=== PATIENT | female | born 1935 | race Caucasian/White ===

== ENCOUNTER 2017-01-11 12:20 | Inpatient (IN) | payer BC, OTHER ==
[2017-01-11] MEDS ORDERED: SODIUM CHLORIDE 1,000 ML IV STA ×5 (12:30→22:52)
[2017-01-11] MEDS ORDERED: ONDANSETRON 4 MG/2 ML VIAL IVPB ONE (12:30)
--- NOTE | 2017-01-11 12:36 | PDOC ---
History of Present Illness - General History Source: Care Provider, Family Exam Limitations: Dementia - History of Present Illness Initial Comments: CHIEF COMPLAINT: 81 y/o afebrile female with PMH HTN, HLD, dementia BIB family and care worker for abdominal pain and vomiting. HISTORY OF PRESENT ILLNESS: The patient's family states that she woke up this morning complaining of abdominal pain and has vomited a few times. The care worker states her last BM was yesterday but she is often constipated. They also have noticed a decrease in urination. They deny fever, cough, hemoptysis, CP, SOB, hematuria, diarrhea, hematemesis, hematochezia, melena. Vital signs on arrival are notable for pulse of 123. REVIEW OF SYSTEMS: (provided by family and care worker) GENERAL/CONSTITUTIONAL: No fever CARDIOVASCULAR: No chest pain or shortness of breath. RESPIRATORY: No cough, wheezing, or hemoptysis. GASTROINTESTINAL: +abdominal pain, vomiting. ?constipation. No diarrhea, hematemesis, hematochezia, melena. GENITOURINARY: +decrease in urination. NEUROLOGIC: No change in mental status. PHYSICAL EXAM: GENERAL: The patient is awake, alert, alert to person, in NAD or obvious discomfort. HEAD: Normal with no signs of trauma. ENT: Pupils equal, round and reactive to light, extraocular movements intact, sclera anicteric, conjunctiva clear. Mucous membranes mildly dry. LUNGS: Clear to auscultation bilaterally. Normal excursion. No respiratory distress or use of accessory muscles. CV: rapid rate/regular rhythm, S1/S2, no MRG. Cap refill < 2 sec. ABDOMEN: Soft, non-distended, TTP of left lower quadrant with passive guarding. No rebound or rigidity. hyperactive BS x 4 quadrants. EXTREMITIES: Normal range of motion, no edema. NEUROLOGICAL: Normal speech, normal gait. CN II-XII grossly intact. PSYCH: Normal mood, normal affect. SKIN: Warm, dry, normal turgor, no rashes or lesions noted. <Alondra Angulo - Last Filed: 01/11/17 17:30> <Joleen Greenberg - Last Filed: 01/13/17 14:19> - General Chief Complaint: Pain Stated Complaint: ABD PAIN Time Seen by Provider: 01/11/17 12:28 Past History <Alondra Angulo - Last Filed: 01/11/17 17:30> <Joleen Greenberg - Last Filed: 01/13/17 14:19> - Past Medical History Allergies/Adverse Reactions: Allergies Allergy/AdvReac Type Severity Reaction Status Date / Time No Known Allergies Allergy Verified 01/11/17 12:35 *Physical Exam - Vital Signs Last Vital Signs Temp Pulse Resp BP Pulse Ox 98.1 F 83 28 H 136/88 100 01/13/17 10:00 01/13/17 14:00 01/13/17 14:00 01/13/17 14:00 01/13/17 11:06 <Joleen Greenberg - Last Filed: 01/13/17 14:19> Heart Score/ECG Review - ECG Intrepretation Comment:: Twelve-lead EKG was performed and reviewed by Dr. Greenberg. There is sinus tachycardia with rate of 123bpm. The axis is normal. The intervals are normal. There are no ST or T wave abnormalities. Impression: Abnormal twelve-lead EKG <Alondra Angulo - Last Filed: 01/11/17 17:30> ED Treatment Course - LABORATORY CBC & Chemistry Diagram: 01/11/17 13:10 01/11/17 13:10 <Alondra Angulo - Last Filed: 01/11/17 17:30> - LABORATORY CBC & Chemistry Diagram: 01/13/17 05:20 01/13/17 05:20 - ADDITIONAL ORDERS Additional order review: 01/11/17 13:10 Blood Culture - Preliminary Blood - Peripheral Venous NO GROWTH OBTAINED AFTER 48 HOURS, INCUBATION TO CONTINUE FOR 3 DAYS. 01/11/17 13:10 Blood Culture - Preliminary Blood - Peripheral Venous NO GROWTH OBTAINED AFTER 48 HOURS, INCUBATION TO CONTINUE FOR 3 DAYS. 01/11/17 13:36 Urine Culture - Final Urine - Urine - Catheterized NO GROWTH OBTAINED 01/11/17 13:10 RBC 4.79 MCV 91.3 MCHC 32.7 RDW 13.6 MPV 7.2 L Neutrophils % 90.0 H Lymphocytes % 4.6 L Monocytes % 5.1 Eosinophils % 0.0 Basophils % 0.3 - Medications Given in the ED: ED Medications Discontinued Medications Generic Name Dose Route Start Last Admin Trade Name Freq PRN Reason Stop Dose Admin Acetaminophen 1,000 mg 01/11/17 16:09 01/11/17 17:20 Ofirmev Injection - IVPB 01/11/17 16:10 1,000 mg ONCE ONE Administration Acetaminophen 1,000 mg 01/12/17 09:36 01/12/17 23:40 Ofirmev Injection - IVPB 01/13/17 03:37 1,000 mg Q6H PRN Administration FEVER OR PAIN Calcium Gluconate 1,000 mg 01/13/17 08:01 01/13/17 08:35 Calcium Gluconate 10% - IVPB 01/13/17 08:02 1,000 mg ONCE ONE Administration Enoxaparin Sodium 60 mg 01/11/17 22:00 01/11/17 21:36 Lovenox - SQ 60 mg BID MARI Administration Sodium Chloride 1,000 mls @ 1,000 mls/hr 01/11/17 12:30 01/11/17 13:00 Normal Saline - IV 01/11/17 13:29 1,000 mls/hr ASDIR STA Administration Sodium Chloride 1,000 mls @ 1,000 mls/hr 01/11/17 15:11 01/11/17 15:14 Normal Saline - IV 01/11/17 16:10 1,000 mls/hr ASDIR STA Administration Levofloxacin 150 mls @ 100 mls/hr 01/11/17 16:09 01/11/17 16:21 Levaquin 750 Mg Premixed Ivpb - IVPB 01/11/17 17:38 100 mls/hr ONCE ONE Administration Azithromycin 500 mg/ Dextrose 250 mls @ 250 mls/hr 01/11/17 17:30 01/11/17 18: 09 IVPB 250 mls/hr DAILY MARI Administration Ceftriaxone Sodium 1 gm/ 50 mls @ 100 mls/hr 01/11/17 17:30 01/11/17 17:59 Dextrose IVPB 100 mls/hr DAILY MARI Administration Sodium Chloride 1,000 mls @ 75 mls/hr 01/11/17 17:30 01/11/17 18:09 Normal Saline - IV 75 mls/hr ASDIR MARI Administration Sodium Chloride 1,000 mls @ 1,000 mls/hr 01/11/17 19:43 01/11/17 20:28 Normal Saline - IV 01/11/17 20:42 1,000 mls/hr ASDIR STA Administration Sodium Chloride 1,000 mls @ 1,000 mls/hr 01/11/17 19:44 01/11/17 20:28 Normal Saline - IV 01/11/17 20:43 1,000 mls/hr ASDIR STA Administration Sodium Chloride 1,000 mls @ 1,000 mls/hr 01/11/17 22:52 01/11/17 23:13 Normal Saline - IV 01/11/17 23:51 1,000 mls/hr ASDIR STA Administration Vancomycin HCl 250 mls @ 250 mls/hr 01/11/17 22:56 01/12/17 00:22 Vancomycin (Pre-Docked) IVPB 01/11/17 23:55 Not Given ONCE ONE Protocol Piperacillin Sod/Tazobactam Sod 50 mls @ 100 mls/hr 01/11/17 22:57 01/12/17 00: 22 Zosyn 3.375gm Ivpb (Pre-Docked) IVPB 01/11/17 23:26 Not Given ONCE ONE Protocol Vancomycin HCl 1,000 mg/ 250 mls @ 250 mls/hr 01/12/17 10:32 01/12/17 11:55 Dextrose IVPB 01/12/17 11:31 Not Given ONCE ONE Protocol Potassium Phosphate 21 mm/ 257 mls @ 51.4 mls/hr 01/12/17 13:00 01/12/17 14:17 Sodium Chloride IVPB 01/12/17 17:59 51.4 mls/hr ONCE ONE Administration Magnesium Sulfate 1 gm 01/12/17 12:15 01/12/17 12:51 Magnesium Sulfate IVPB 01/12/17 12:16 1 gm ONCE ONE Administration Ondansetron HCl 4 mg 01/11/17 12:30 01/11/17 13:00 Zofran Injection IVPB 01/11/17 12:31 4 mg ONCE ONE Administration Pantoprazole Sodium 40 mg 01/12/17 10:00 01/12/17 09:38 Protonix 40mg Ivpb (Pre-Docked) IVPB 40 mg DAILY MARI Administration Pneumococcal 13-Valent Conj Vacc 0.5 ml 01/12/17 10:00 01/12/17 17:51 Prevnar 13 Syringe - IM 01/12/17 10:01 0.5 ml .ONCE ONE Administration <Joleen Greenbegr - Last Filed: 01/13/17 14:19> Medical Decision Making - Medical Decision Making A/P: 81 y/o female with abdominal pain and vomiting. Plan is as follows: 1. Septic work up 2. abdominal xray Lactic acid 3.1; ordered 2nd Liter of IV fluids Elevated WBC count with left shift. Abd flat/upright IMPRESSION: No evidence of bowel obstruction or acute pathology. CXR IMPRESSION: Developing right basilar consolidation Patient's temp is now 99.8 Ordered [facility] hospitalist for admission Informed the family of the plan. Spoke with Dr. Carbajal and she accepts admission to med/surg. <Alondra Angulo - Last Filed: 01/11/17 17:30> - Medical Decision Making 01/13/17 14:18 Pt seen and examined by me. Agree with above history and physical, assessment and plan. Patient presents to the ED with nausea and vomiting. Found to have pneumonia. Will treat with antibiotics and admit. <Joleen Greenberg - Last Filed: 01/13/17 14:19> *DC/Admit/Observation/Transfer - Discharge Dispostion Admit: Yes <Alondra Angulo - Last Filed: 01/11/17 17:30> <Joleen Greenberg - Last Filed: 01/13/17 14:19> Diagnosis at time of Disposition: Lactic acid acidosis Pneumonia Qualifiers: Pneumonia type: due to unspecified organism Laterality: right Lung location: lower lobe of lung Qualified Code(s): J18.1 - Lobar pneumonia, unspecified organism Sepsis Qualifiers: Sepsis type: sepsis due to unspecified organism Qualified Code(s): A41.9 - Sepsis, unspecified organism - Discharge Dispostion Condition at time of disposition: Stable - Referrals
--- NOTE | 2017-01-11 12:37 | EKG ---
Test Reason : Blood Pressure : / mmHG Vent. Rate : 121 BPM Atrial Rate : 121 BPM P-R Int : 144 ms QRS Dur : 064 ms QT Int : 326 ms P-R-T Axes : 075 -10 057 degrees QTc Int : 462 ms SINUS TACHYCARDIA POSSIBLE INFERIOR INFARCT , AGE UNDETERMINED ABNORMAL ECG NO PREVIOUS ECGS AVAILABLE Confirmed by JASWINDER ALVARADO MD ([id number]) on 01/11/2017 12:36:53 PM Referred By: Confirmed By:JASWINDER ALVARADO MD
[2017-01-11 13:29] LABS: BASOPHIL 0.3 % (0-2.0); MCH 29.9 pg (25.7-33.7); MCHC 32.7 g/dl (32.0-36.0); MEAN CELL VOLUME 91.3 fl (80-96); MEAN PLT VOLUME 7.2 fl (7.5-11.1); PLATELET COUNT 365 K/MM3 (134-434); RDW 13.6 % (11.6-15.6); WHITE BLOOD COUNT 17.7 K/mm3 (4.0-10.0)
[2017-01-11 13:53] LABS: ALBUMIN 3.1 g/dl (3.4-5.0); ANION GAP 10 (8-16); BILIRUBIN,TOTAL 0.6 mg/dL (0.2-1.0); CALCIUM 9.2 mg/dL (8.5-10.1); CO2 28 mmol/L (21-32); CREATININE 0.7 mg/dL (0.55-1.02); GLUCOSE,RANDOM 101 mg/dL (74-106); SGPT/ALT 88 U/L (12-78)
[2017-01-11 13:55] LABS: ALK PHOS 172 U/L (45-117); TROPONIN I 0.38 ng/ml (0.00-0.05)
[2017-01-11 13:56] LABS: SGOT/AST 89 U/L (15-37)
[2017-01-11 14:09] LABS: INR 1.35 (0.82-1.09); PROTHROMBIN TIME (PATIENT) 14.9 SEC (9.98-11.88)
[2017-01-11 14:12] LABS: ACTIVATED PTT 38.9 SECONDS (26.9-34.4)
[2017-01-11 15:14] LABS: URINE APPEARANCE CLEAR; URINE BILIRUBIN NEGATIVE (NEGATIVE); URINE BLOOD NEGATIVE (NEGATIVE); URINE COLOR YELLOW; URINE GLUCOSE (UA) NEGATIVE (NEGATIVE); URINE KETONE NEGATIVE (NEGATIVE); URINE NITRITE NEGATIVE (NEGATIVE); URINE PROTEIN NEGATIVE (NEGATIVE); URINE UROBILINOGEN NEGATIVE E.U./dl (0.2-1.0)
[2017-01-11 15:18] LABS: URINE LEUK ESTERASE 1+ (NEGATIVE)
[2017-01-11 15:33] LABS: URINE MUCUS RARE; URINE RBC 3 /hpf (0-3); URINE WBC 7 /hpf (3-5)
[2017-01-11] MEDS ORDERED: LEVOFLOXACIN 750 MG IVPB 150 ML IVPB ONE ×2 (16:09→16:18)
[2017-01-11] MEDS ORDERED: ACETAMINOPHEN 1000 MG/100 ML VIAL (NON FORMULARY) IVPB ONE (16:09)
[2017-01-11] MEDS ORDERED: ACETAMINOPHEN INJECTION 100 ML IVPB ONE (16:17)
[2017-01-11] MEDS ORDERED: ONDANSETRON 4 MG/2 ML VIAL IVPB PRN (17:29)
[2017-01-11] MEDS ORDERED: AZITHROMYCIN IVPB 500 MG in DEXTROSE 5%-WATER - 250 ML IVPB SCH (17:30)
[2017-01-11] MEDS ORDERED: CEFTRIAXONE 1 GM in DEXTROSE 5%-WATER - 50 ML IVPB SCH (17:30)
[2017-01-11] MEDS ORDERED: SODIUM CHLORIDE 1,000 ML IV SCH (17:30)
--- NOTE | 2017-01-11 17:48 | PN ---
Teaching Attending Note Name of Resident: Jurgen James ATTENDING PHYSICIAN STATEMENT I saw and evaluated the patient. I reviewed the resident's note and discussed the case with the resident. I agree with the resident's findings and plan as documented. SUBJECTIVE: 81 year old female with advanced dementia brought by family due to increasing lethargy over the past 2 weeks and episode of nausea and vomiting this am . EVIEW OF SYSTEMS: (provided by family and care worker) GENERAL/CONSTITUTIONAL: No fever CARDIOVASCULAR: No chest pain or shortness of breath. RESPIRATORY: No cough, wheezing, or hemoptysis. GASTROINTESTINAL: +abdominal pain, vomiting.No diarrhea, hematemesis, hematochezia, melena. GENITOURINARY: +decrease in urination. possible retention NEUROLOGIC: increased lethargy past 2 weeks PMH. Dementia CVA HTN SX cholecystectomy appendectomy ALL none Active Medications Azithromycin 500 mg/ Dextrose 250 mls @ 250 mls/hr IVPB DAILY MARI Ceftriaxone Sodium 1 gm/ (Dextrose) 50 mls @ 100 mls/hr IVPB DAILY MARI Sodium Chloride (Normal Saline -) 1,000 mls @ 75 mls/hr IV ASDIR MARI Ondansetron HCl (Zofran Injection) 4 mg IVPB Q6H PRN PRN Reason: NAUSEA SOcial no history of toxic habits lives with family OBJECTIVE: Vital Signs Temperature 99.7 F H 01/11/17 15:00 Pulse Rate 115 H 01/11/17 16:47 Respiratory Rate 25 H 01/11/17 16:47 Blood Pressure 113/75 01/11/17 16:47 O2 Sat by Pulse Oximetry (%) 99 01/11/17 16:47 GENERAL: The patient is awake, alert, alert to person, in NAD HEAD: Normal with no signs of trauma. ENT: Pupils equal, round and reactive to light,sclera anicteric, conjunctiva clear. Mucous membranes mildly dry. LUNGS: Clear to auscultation bilaterally. Normal excursion. No respiratory distress or use of accessory muscles. CV: rapid rate/regular rhythm, S1/S2, no MRG. Cap refill < 2 sec. ABDOMEN: Soft, non-distended,mild tenderness diffuse . No rebound or rigidity. hyperactive BS x 4 quadrants. EXTREMITIES: Normal range of motion, no edema.B/l popliteal cysts NEUROLOGICAL: Lethargic PSYCH:Lethargic SKIN: Warm, dry, normal turgor, no rashes or lesions noted. CBC, BMP 01/11/17 13:10 01/11/17 13:10 Urine Test Results Urine Color Yellow 01/11/17 13:36 Urine Appearance Clear 01/11/17 13:36 Urine pH 6.0 (5.0-8.0) 01/11/17 13:36 Urine Protein Negative (NEGATIVE) 01/11/17 13:36 Urine Glucose (UA) Negative (NEGATIVE) 01/11/17 13:36 Urine Ketones Negative (NEGATIVE) 01/11/17 13:36 Urine Blood Negative (NEGATIVE) 01/11/17 13:36 Urine Nitrite Negative (NEGATIVE) 01/11/17 13:36 Urine Bilirubin Negative (NEGATIVE) 01/11/17 13:36 Ur Leukocyte Esterase 1+ (NEGATIVE) H 01/11/17 13:36 Urine RBC 3 /hpf (0-3) 01/11/17 13:36 Urine WBC 7 /hpf (3-5) 01/11/17 13:36 Ur Epithelial Cells Rare /hpf (FEW) 01/11/17 13:36 Urine Mucus Rare 01/11/17 13:36 Chest XR reveals Right Basilar consolidation A/P 1. Severe sepsis secondary to community acquired pneumonia. Considering advanced dementia, lethargy and evidence of Right sided infiltrate can not rule out aspiration . * IVF * Rocephine IV and Zithromax * trend lactate * blood cultures * O2 * nebs * speech and swallow eval 2. Elevated Troponin * trend, if raising and EKG changes will call cardiology 3.SUspected urinary retention * will place cote catheter 4. B/L LE swelling - will obtain dopplers
[2017-01-11] MEDS ORDERED: CEFTRIAXONE 50 ML ONE (17:52)
[2017-01-11] MEDS ORDERED: ACETAMINOPHEN 1000 MG/100 ML VIAL (NON FORMULARY) IVPB PRN (19:01)
--- NOTE | 2017-01-11 19:03 | HP ---
CHIEF COMPLAINT: Altered mental status and lethargic PCP: Alfredo Foster MD HISTORY OF PRESENT ILLNESS: 81 yo F h/o HTN, HLD, dementia brought in by family members due to abdominal pain, altered mental status and yellow sputum. Per family, patient has not been herself for 2 weeks which has been off her baseline mental status. Today, patient woke up in the AM and complained of diffuse abd pain and vomited a couple of times. Care worker also found she had yellow sputum when cleaning her mouth. Patient never received pneumoia vaccine. Denies fever, chills, cough, chest pain, shortness of breath, hematemesis, hematochezia, melena. ER course was notable for: (1) Elevated temp, tachycardic and tachypenic (2) Received 2 L IVF, Normotensive (3) Elevated lactic acid and 1st trop Recent Travel: Denies PAST MEDICAL HISTORY: As above PAST SURGICAL HISTORY: None Social History: Smoking: Denies Alcohol: Denies Drugs: Denies Family History: Non-contributory Allergies No Known Allergies Allergy (Verified 01/11/17 12:35) HOME MEDICATIONS: REVIEW OF SYSTEMS CONSTITUTIONAL: generalized weakness, malaise, loss of appetite Absent: fever, chills, diaphoresis, , weight change HEENT: Absent: rhinorrhea, nasal congestion, throat pain, throat swelling, difficulty swallowing, mouth swelling, ear pain, eye pain, visual changes CARDIOVASCULAR: Absent: chest pain, syncope, palpitations, irregular heart rate, lightheadedness , peripheral edema RESPIRATORY: Absent: cough, shortness of breath, dyspnea with exertion, orthopnea, wheezing, stridor, hemoptysis GASTROINTESTINAL: abdominal pain Absent: abdominal distension, nausea, vomiting, diarrhea, constipation, melena, hematochezia GENITOURINARY: urinary retention Absent: dysuria, frequency, urgency, hesitancy, hematuria, flank pain, genital pain MUSCULOSKELETAL: Absent: myalgia, arthralgia, joint swelling, back pain, neck pain SKIN: Absent: rash, itching, pallor HEMATOLOGIC/IMMUNOLOGIC: Absent: easy bleeding, easy bruising, lymphadenopathy, frequent infections ENDOCRINE: Absent: unexplained weight gain, unexplained weight loss, heat intolerance, cold intolerance NEUROLOGIC: Absent: headache, focal weakness or paresthesias, dizziness, unsteady gait, seizure, mental status changes, bladder or bowel incontinence PSYCHIATRIC: Absent: anxiety, depression, suicidal or homicidal ideation, hallucinations. PHYSICAL EXAMINATION Last Vital Signs Temp Pulse Resp BP Pulse Ox 99.7 F H 115 H 25 H 113/75 99 01/11/17 15:00 01/11/17 16:47 01/11/17 16:47 01/11/17 16:47 01/11/17 16:47 GENERAL: AAO x 3, in no acute distress. HEAD: Normal with no signs of trauma. EYES: PERRLA, sclera anicteric, conjunctiva clear. No lid lag. EARS, NOSE, THROAT: oropharynx clear without exudates. Moist mucous membranes. NECK: Normal range of motion, supple without lymphadenopathy, JVD, or masses. LUNGS: CTAB HEART: tachycardic, normal S1 and S2 without murmur, rub or gallop. ABDOMEN: Soft, diffusely tender, not distended, normoactive bowel sounds, no guarding, no rebound, no masses. EXTREMITIES: Cold extremities. Weak pulses bilaterally. No peripheral edema. b/ l cysts behind knees CBCD WBC 17.7 K/mm3 (4.0-10.0) H 01/11/17 13:10 RBC 4.79 M/mm3 (3.60-5.2) 01/11/17 13:10 Hgb 14.3 GM/dL (10.7-15.3) 01/11/17 13:10 Hct 43.7 % (32.4-45.2) 01/11/17 13:10 MCV 91.3 fl (80-96) 01/11/17 13:10 MCHC 32.7 g/dl (32.0-36.0) 01/11/17 13:10 RDW 13.6 % (11.6-15.6) 01/11/17 13:10 Plt Count 365 K/MM3 (134-434) 01/11/17 13:10 MPV 7.2 fl (7.5-11.1) L 01/11/17 13:10 CMP Sodium 139 mmol/L (136-145) 01/11/17 13:10 Potassium 5.0 mmol/L (3.5-5.1) 01/11/17 13:10 Chloride 101 mmol/L (98-107) 01/11/17 13:10 Carbon Dioxide 28 mmol/L (21-32) 01/11/17 13:10 Anion Gap 10 (8-16) 01/11/17 13:10 BUN 9 mg/dL (7-18) 01/11/17 13:10 Creatinine 0.7 mg/dL (0.55-1.02) 01/11/17 13:10 Creat Clearance w eGFR > 60 (>60) 01/11/17 13:10 Calcium 9.2 mg/dL (8.5-10.1) 01/11/17 13:10 Total Bilirubin 0.6 mg/dL (0.2-1.0) 01/11/17 13:10 AST 89 U/L (15-37) H 01/11/17 13:10 ALT 88 U/L (12-78) H 01/11/17 13:10 Alkaline Phosphatase 172 U/L (45-117) H 01/11/17 13:10 Total Protein 9.0 g/dl (6.4-8.2) H 01/11/17 13:10 Albumin 3.1 g/dl (3.4-5.0) L 01/11/17 13:10 IMAGING CXR on 01/11: developing bibasilar consolidation Abd X-ray on 01/11: no acute pathology ASSESSMENT/PLAN: 81 yo F h/o HTN, HLD, dementia admitted to med-surg for CAP. Severe Sepsis 2/2 CAP - Received levaquin 750mg x 1 dose - Started on azithromycin 500mg IV and rocephin 1g IV daily - Supplement O2 to maintain O2 sat > 92% - IV tylenol for fevers - Cont. MARI NS 75cc/hr - Cont. to trend lactic acid - f/u urine and blood cultures Elevated cardiac enzyme - Likely demand ischemia - Cont. to trend troponins Bilateral lower extremities swelling - f/u duplex FEN - IVF 75cc/hr - Normal lytes - NPO, awaiting S&S Prophylaxis - DVT: heparin SQ - GI: not indicated Dispo - Cont. to monitor - S&S and PT Visit type - Emergency Visit Emergency Visit: Yes ED Registration Date: 01/11/17 Care time: The patient presented to the Emergency Department on the above date and was hospitalized for further evaluation of their emergent condition. - New Patient This patient is new to me today: Yes Date on this admission: 01/11/17 - Critical Care Critical Care patient: No
[2017-01-11] MEDS ORDERED: AZITHROMYCIN IVPB 250 ML IVPB SCH (19:12)
[2017-01-11] MEDS ORDERED: CEFTRIAXONE 50 ML IVPB SCH (19:13)
--- NOTE | 2017-01-11 20:34 | HOSP ---
Subjective - Review of Symptoms Subjective: Pt. seen at bedside Pt. able to follow commands Physical: VS: Vital Signs Period Temp Pulse Resp BP Sys/Mcdaniel Pulse Ox Last 24 Hr 98.7 F-99.8 F 90-123 18-28 96-130/62-81 94-99 RR at Bedside 24 GEN: Elderly female resting in bed HEENT: NCAT, PERRL CARD: RRR S1, S2 RESP: Decreased Breath Sounds at Bases EXT: L ext edema >R Duplex: LLE DVT A/P.) Septic Shock secondary to pneumonia - Abcess LLL - Broaden coverage to Vanco/Zosyn - ID consult - LA trending down - IVF, If not responsive, central line and pressors to Keep MAP>70 - Repeat LA - Follow Cx 2.) Saddle PE/DVT - Lovenox 60 Q12 - Right heart strain on CT - STAT Echo - BP labile (?from Sepsis/Pe)- IF continously Hypotensive then will give TPA ( No contraindications as per family) 3.) Transaminitis - Hepatitis Panel - Trend Transfer to ICU, accepted by spinning doffer CC Time: 38 Minutes Physical Examination Vital Signs: Vital Signs Temperature 99.7 F H 01/11/17 15:00 Pulse Rate 115 H 01/11/17 16:47 Respiratory Rate 25 H 01/11/17 16:47 Blood Pressure 113/75 01/11/17 16:47 O2 Sat by Pulse Oximetry (%) 99 01/11/17 16:47
[2017-01-11] MEDS ORDERED: ENOXAPARIN NA (PORCINE) 60 MG/0.6 ML DISP.SYRIN SQ ONE (21:33)
[2017-01-11] MEDS ORDERED: HEPARIN NA (PORCINE) 5,000 UNITS/ML 1ML VIAL SQ SCH (22:00)
[2017-01-11] MEDS ORDERED: ENOXAPARIN NA (PORCINE) 60 MG/0.6 ML DISP.SYRIN SQ SCH (22:00)
[2017-01-11] MEDS ORDERED: VANCOMYCIN 1 GRAM (PRE-DOCKED) 250 ML IVPB ONE (22:56)
[2017-01-11] MEDS ORDERED: PIPERACILLIN/TAZOB 3.375 GM 50 ML IVPB ONE (22:57)
--- NOTE | 2017-01-12 00:12 | CONSULT ---
Consult Consult Specialty:: pulm/ critical care Referred by:: Chuck Reason for Consultation:: saddle PE - History of Present Illness Chief Complaint: altered mental status, abdominal pain, vomiting History of Present Illness: 81 y/o woman with h/o HTN, HLD and Alzheimers dementia brought in by family for abdominal pain, altered mental status and yellow sputum. Per family pt has been off her baseline mental status x 2 weeks. On day of admission pt woke in am and ? abdominal pain and vomited a few times. Care worker also noted yellow sputum when cleaning her mouth. Additionally family noted decreased urine output. Pt and family denied fever, cough, chest pain, shortness of breath, hematemesis, hematochezia or melena. They also denied that pt had received pneumovax. In the ED, VS: T 99.8, HR 123, BP 130/81, RR 18, O2 94%. Labs were notable for WBC 17 and lactate 3.1, AST/ALT 89/88. She was given 2L IVF and was initially normotensive. CTA was obtained which was notable for a saddle embolus straddling the right and left PAs extending into the right upper and lower lobar arteries and left lower lobe lobar artery. It also noted RV dilitation with septal displacement and reflux contrast in IVC concerning for right heart strain. Imaging was also notable for a thick walled cavitary lesion in LLL. In this setting she was started on Lovenox 60q12 as well as abx which were broadened to vanco/ zosyn. Pts BP became labile and due to concern for massive PE, TPA was considered, per family no contraindications. Plan made for transfer to ICU, central line placement and possible TPA. Pt arrived in ICU with improved hemodynamics, BP 120 up from 80s-90s and after discussion with pts primary team, decision made to defer TPA unless pt should become unstable. Active Medications Acetaminophen (Ofirmev Injection -) 1,000 mg IVPB Q6H PRN PRN Reason: FEVER OR PAIN Stop: 01/12/17 13:02 Enoxaparin Sodium (Lovenox -) 60 mg SQ BID [facility] Last Admin: 01/11/17 21:36 Dose: 60 mg Sodium Chloride (Normal Saline -) 1,000 mls @ 75 mls/hr IV ASDIR [facility] Last Admin: 01/11/17 18:09 Dose: 75 mls/hr Pantoprazole Sodium 40 mg/ (Sodium Chloride) 100 mls @ 200 mls/hr IVPB DAILY MARI Ondansetron HCl (Zofran Injection) 4 mg IVPB Q6H PRN PRN Reason: NAUSEA Pneumococcal 13-Valent Conj Vacc (Prevnar 13 Syringe -) 0.5 ml IM .ONCE ONE Stop: 01/12/17 10:01 - History Source History Provided By: Medical Record Limitations to Obtaining History: Language Barrier - Past 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 Cardio/Vascular: Yes: HTN, Hyperlipdemia - Alcohol/Substance Use Hx Alcohol Use: No - Smoking History Smoking history: Never smoked Have you smoked in the past 12 months: No Home Medications - Allergies Allergies/Adverse Reactions: Allergies Allergy/AdvReac Type Severity Reaction Status Date / Time No Known Allergies Allergy Verified 01/11/17 12:35 - Home Medications Home Medications: Ambulatory Orders Unobtainable [Unobtainable] 01/11/17 Family Disease History - Family Disease History Family History: Unable to Obtain Review of Systems Unable to obtain ROS, reason: dementia Physical Exam Vital Signs: Vital Signs Temperature 98.7 F 01/11/17 20:46 Pulse Rate 90 01/11/17 23:28 Respiratory Rate 30 H 01/11/17 23:28 Blood Pressure 108/73 01/11/17 23:28 O2 Sat by Pulse Oximetry (%) 98 01/11/17 23:28 Constitutional: Yes: Well Nourished, Calm Eyes: Yes: WNL, PERRL HENT: Yes: Atraumatic Cardiovascular: Yes: Regular Rate and Rhythm, S1, S2 Respiratory: Yes: CTA Bilaterally, Tachypnea. No: Rales, Rhonchi, Wheezes Gastrointestinal: Yes: Normal Bowel Sounds, Distention, Tenderness Extremities: Yes: Calf Tenderness (L), Other (LLE swelling, erythema, calf tenderness) Edema: Yes Edema: LLE: 1+ Peripheral Pulses WNL: Yes Integumentary: Yes: WNL Neurological: Yes: Confusion, Other (dementia) ...Motor Strength: WNL Labs: CBCD WBC 17.7 K/mm3 (4.0-10.0) H 01/11/17 13:10 RBC 4.79 M/mm3 (3.60-5.2) 01/11/17 13:10 Hgb 14.3 GM/dL (10.7-15.3) 01/11/17 13:10 Hct 43.7 % (32.4-45.2) 01/11/17 13:10 MCV 91.3 fl (80-96) 01/11/17 13:10 MCHC 32.7 g/dl (32.0-36.0) 01/11/17 13:10 RDW 13.6 % (11.6-15.6) 01/11/17 13:10 Plt Count 365 K/MM3 (134-434) 01/11/17 13:10 MPV 7.2 fl (7.5-11.1) L 01/11/17 13:10 CMP Sodium 139 mmol/L (136-145) 01/11/17 13:10 Potassium 5.0 mmol/L (3.5-5.1) 01/11/17 13:10 Chloride 101 mmol/L (98-107) 01/11/17 13:10 Carbon Dioxide 28 mmol/L (21-32) 01/11/17 13:10 Anion Gap 10 (8-16) 01/11/17 13:10 BUN 9 mg/dL (7-18) 01/11/17 13:10 Creatinine 0.7 mg/dL (0.55-1.02) 01/11/17 13:10 Creat Clearance w eGFR > 60 (>60) 01/11/17 13:10 Calcium 9.2 mg/dL (8.5-10.1) 01/11/17 13:10 Total Bilirubin 0.6 mg/dL (0.2-1.0) 01/11/17 13:10 AST 89 U/L (15-37) H 01/11/17 13:10 ALT 88 U/L (12-78) H 01/11/17 13:10 Alkaline Phosphatase 172 U/L (45-117) H 01/11/17 13:10 Total Protein 9.0 g/dl (6.4-8.2) H 01/11/17 13:10 Albumin 3.1 g/dl (3.4-5.0) L 01/11/17 13:10 Troponin, BNP 01/11/17 01/11/17 01/11/17 13:10 18:00 20:30 Troponin I 0.38 H Cancelled 0.38 H Imaging - Results Chest X-ray: Report Reviewed Cat Scan: Report Reviewed, Image Reviewed Problem List - Problems (1) Lactic acid acidosis Code(s): E87.2 - ACIDOSIS (2) Pneumonia Code(s): J18.9 - PNEUMONIA, UNSPECIFIED ORGANISM Qualifiers: Pneumonia type: due to unspecified organism Laterality: right Lung location: lower lobe of lung Qualified Code(s): J18.1 - Lobar pneumonia, unspecified organism (3) Sepsis Code(s): A41.9 - SEPSIS, UNSPECIFIED ORGANISM Qualifiers: Sepsis type: sepsis due to unspecified organism Qualified Code(s): A41.9 - Sepsis, unspecified organism (4) Pulmonary embolism Code(s): I26.99 - OTHER PULMONARY EMBOLISM WITHOUT ACUTE COR PULMONALE Assessment/Plan 81 y/o woman with HTN, HLD and Alzheimers dementia presented with abdominal pain , altered mental status and yellow sputum, found to have saddle pulmonary embolus with RV dilitation and signs of right heart strain, also with pulmonary cavitary lesion and leukocytosis concerning for cavitary PNA. CV/Pulm: Labile BP likely combination of septic in setting of possible cavitary PNA and cardiogenic/ obstructive in setting of saddle PE with RV dilitation/ strain #PE -continue lovenox 60 bid -TTE -close hemodynamic monitoring -if hypotensive obtain central access -if hemodynamic compromise consider thrombinolysis -could also consider thrombectomy - IR unavailable at present #sepsis/ cavitary PNA -trend lactate -abx as outlined below -O2 as needed -serial CXR ID: Sepsis (fever, leukocytosis) likely 2/2 cavitary PNA -ID consult -continue vanco/ zosyn for broad spectrum coverage - will likely need prolonged course given cavitary nature -trend WBC, fever curve -follow cxl GI: Abd pain/ nausea/ vomiting at home, presented with transaminitis of unclear etiolgy ? hepatic congestion in setting of RV dysfunction vs primary hepatic etiology -trend LFTs -consider abdominal US -send hepatitis panel -NPO at present - re-evaluate in am PPX: -lovenox -PPI Dispo: FULL Ene BOJORQUEZ CC Time: 35 mins
[2017-01-12 02:14] VITALS: BMI 21.9
[2017-01-12 07:31] LABS: TROPONIN I 0.17 ng/ml (0.00-0.05)
[2017-01-12] MEDS ORDERED: ONDANSETRON 4 MG/2 ML VIAL IVPB PRN (09:11)
[2017-01-12 09:26] LABS: BASOPHIL 0.5 % (0-2.0); EOSINOPHIL 0.2 % (0-4.5); MCH 30.2 pg (25.7-33.7); MCHC 32.5 g/dl (32.0-36.0); MEAN CELL VOLUME 93.1 fl (80-96); MEAN PLT VOLUME 7.6 fl (7.5-11.1); PLATELET COUNT 297 K/MM3 (134-434); RDW 13.9 % (11.6-15.6); WHITE BLOOD COUNT 11.5 K/mm3 (4.0-10.0)
[2017-01-12] MEDS ORDERED: ACETAMINOPHEN 1000 MG/100 ML VIAL (NON FORMULARY) IVPB PRN (09:36)
[2017-01-12] MEDS: SODIUM CHLORIDE 1,000 ML IV SCH (09:38)
[2017-01-12 09:40] LABS: ALBUMIN 2.2 g/dl (3.4-5.0); ANION GAP 13 (8-16); CALCIUM 7.2 mg/dL (8.5-10.1); CO2 17 mmol/L (21-32); CREATININE 0.6 mg/dL (0.55-1.02); GLUCOSE,RANDOM 85 mg/dL (74-106); MAGNESIUM 1.6 mg/dL (1.8-2.4); PHOSPHOROUS 2.4 mg/dL (2.5-4.9); SGOT/AST 163 U/L (15-37); SGPT/ALT 162 U/L (12-78)
[2017-01-12 09:42] LABS: ALK PHOS 177 U/L (45-117); BILIRUBIN,TOTAL 0.3 mg/dL (0.2-1.0)
[2017-01-12] MEDS ORDERED: PANTOPRAZOLE SODIUM 40 MG/100 ML PRE-DOCKED IVPB SCH (10:00)
[2017-01-12] MEDS ORDERED: PNEUMOC 13-VAL CONJ-DIP CRM/PF 0.5 ML DISP.SYRIN IM ONE (10:00)
[2017-01-12] MEDS ORDERED: ENOXAPARIN NA (PORCINE) 60 MG/0.6 ML DISP.SYRIN SQ SCH (10:00)
[2017-01-12] MEDS ORDERED: PANTOPRAZOLE SODIUM 40 MG in SODIUM CHLORIDE 100 ML IVPB SCH (10:00)
--- NOTE | 2017-01-12 10:30 | PN ---
Progress Note (short form) - Note Progress Note: ID consult dictated 81 year old female admitted from home with acute onset of vomiting and abdominal pain she was noted to have a wbc of 17k and lactic acidosis in the ED she was noted to have bilateral LE swelling and duplex was positive for LLE DVT she had a chest CTA done showing a large saddle embolus and left lower lobe thick walled cavitary mass PE DVT Left lower lobe cavitary mass- r/o abscess, r/o neoplasm, less likely TB no history of TB per patient, dvt/PE suggestive of malignancy quantiferon gold cultures pending legionella urinary antigen zosyn for broad spectrum coverage including anaerobes management of PE per ICU/pulmonary
[2017-01-12] MEDS ORDERED: VANCOMYCIN 1,000 MG in DEXTROSE 5%-WATER - 250 ML IVPB ONE (10:32)
--- NOTE | 2017-01-12 11:03 | CONSULT ---
Admitting History and Physical - Primary Care Physician PCP: Candy Dominguez - Admission History of Present Illness: 81 year old female admitted from home with acute onset of vomiting and abdominal pain. Noted to have PE, DVT, Left lower lobe cavitary mass- r/o abscess, r/o neoplasm , less likely TB Caase reviewed with ID. Massive PE/ being considered for TPA. Swallowing evaluation deferred for now. 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
--- NOTE | 2017-01-12 11:37 | CONS ---
DATE OF CONSULTATION: REQUESTING PHYSICIAN: Hospitalist service HISTORY: This is a 81-year-old woman who lives at home with her family. She has some mild dementia, hypertension, and hyperlipidemia. She was brought to the emergency room with acute onset of vomiting and abdominal pain on the morning of admission, which was yesterday. She was noted to have some yellow sputum. There was no history of any fevers, chills, cough, chest pain, shortness of breath. She was noted to be tachycardic and tachypneic in the ER. She had a temperature of 99.8. She received IV fluids. She was given Levaquin. She had a chest x-ray done in the ER that was concerning for a possible right basilar infiltrate. She was admitted. She was noted to have some swelling of her legs, and she had a duplex done that showed a left lower extremity DVT. Given her tachypnea, she then had a CTA of her chest done that revealed an acute PE, which was described as a saddle embolus. She was noted on the CAT scan as well to have a thick walled 3-cm x 3-cm cavity in the left lower lobe. I am asked to see her for antibiotic management. She received ceftriaxone and Zithromax as well last night. This morning she is resting comfortably. She has no complaints. She is afebrile with a temperature of 98.1. PAST MEDICAL HISTORY: Notable for history of mild dementia, hypertension, hyperlipidemia. She denies any history of prior tuberculosis. SOCIAL HISTORY: She lives at home. There is no history of any substance use. There is no history of any cigarette use. ALLERGIES: She has no drug allergies. MEDICATIONS: Her medications at home, the list is not obtainable. REVIEW OF SYSTEMS: She denies weight loss. PHYSICAL EXAMINATION: Vital Signs: T-max 99.8, current temperature 98.5, pulse 90, blood pressure 108/71, respiratory rate 32. HEENT: She is normocephalic. Her eyes are anicteric. Neck: Supple. Lungs: Diminished breath sounds at the bases. Heart: Regular rate and rhythm. Abdomen: Soft and nontender. Extremities: Notable for mild edema of both of her lower extremities. LABORATORIES: Notable for a white count of 11.5, hemoglobin 10.8, platelets 297. Her INR is 1.3. Her BUN 13, creatinine 0.7. LFTs are notable for an AST of 163, ALT 162, alkaline phosphatase 177. Troponins are positive with a peak of 0.38, currently 0.17. Urinalysis is notable for 1+ leukocytes with 7 white cells. Cultures are pending. In summary, this is a 80-year-old woman with a large PE, left lower extremity DVT, left lower lobe cavitary mass, rule out abscess, rule out neoplasm, less likely TB. No history of TB per patient. DVT and PE is very suggestive of malignancy. We will obtain a QuantiFERON Gold. Cultures are pending. Legionella urinary antigen for completeness. Would treat her with piperacillin and tazobactam for gram-negative, gram-positive, and anaerobic coverage. Management of PE per the ICU team. LEANDRO LEAL M.D. [id number]
--- NOTE | 2017-01-12 11:48 | PN ---
Physical Exam: SUBJECTIVE: Patient seen and examined. Gibraltarian-speaking woman laying in bed. c/o feeling nauseous and epigastric pain. denies fevers, cough. She is originally from [place], denies personal or family history of tuberculosis. She lives with her daughter Jami and Jami's daughter. She has 8 children, Radha(speaks guamanian([phone])) is the oldest and according to Dick makes the healthcare decisions for the patient. According Radha, she signed a HCP and advance directives in Dr. Rogel's office, but when I called the office, they had no records. Dick Lau is the youngest son, cell [phone] Radha's son Kemal Myers can be reached to make decisions as well, (speaks guamanian) [phone] PCP: Dr. Rogel Neurologist: Dr. Kebede OBJECTIVE: Vital Signs Period Temp Pulse Resp BP Sys/Mcdaniel Pulse Ox Last 24 Hr 98.1 F-98.7 F 82-96 20-32 88-121/53-74 94-98 GENERAL: The patient is awake, alert, in no acute distress. HEAD: Normal with no signs of trauma. EYES: PERRL, extraocular movements intact, sclera anicteric, conjunctiva clear. No ptosis. ENT: oropharynx clear without exudates, moist mucous membranes. NECK: Trachea midline, full range of motion, supple. no LAD. LUNGS:clear to auscultation bilaterally, no wheezes, no crackles, no accessory muscle use. HEART: S1, S2 ABDOMEN: Soft, nontender, nondistended, normoactive bowel sounds, no guarding EXTREMITIES: 2+ radial pulses, cool, well-perfused, no edema. Laboratory Results - last 24 hr 01/11/17 01/11/17 01/11/17 18:00 20:30 20:30 WBC RBC Hgb Hct MCV MCHC RDW Plt Count MPV Neutrophils % Lymphocytes % Monocytes % Eosinophils % Basophils % Sodium Potassium Chloride Carbon Dioxide Anion Gap BUN Creatinine Creat Clearance w eGFR Random Glucose Lactic Acid 2.7 H* Calcium Phosphorus Magnesium Total Bilirubin AST ALT Alkaline Phosphatase Creatine Kinase Cancelled Troponin I Cancelled 0.38 H Total Protein Albumin 01/12/17 01/12/17 01/12/17 05:20 08:25 09:20 WBC 11.5 H D RBC 3.59 L D Hgb 10.8 D Hct 33.4 D MCV 93.1 MCHC 32.5 RDW 13.9 Plt Count 297 MPV 7.6 Neutrophils % 75.0 Lymphocytes % 15.1 D Monocytes % 9.2 D Eosinophils % 0.2 D Basophils % 0.5 Sodium Potassium Chloride Carbon Dioxide Anion Gap BUN Creatinine Creat Clearance w eGFR Random Glucose Lactic Acid 2.2 H* Calcium Phosphorus Magnesium Total Bilirubin AST ALT Alkaline Phosphatase Creatine Kinase 90 Troponin I 0.17 H Total Protein Albumin 01/12/17 09:20 WBC RBC Hgb Hct MCV MCHC RDW Plt Count MPV Neutrophils % Lymphocytes % Monocytes % Eosinophils % Basophils % Sodium 144 Potassium 4.1 Chloride 114 H D Carbon Dioxide 17 L D Anion Gap 13 BUN 7 D Creatinine 0.6 Creat Clearance w eGFR > 60 Random Glucose 85 Lactic Acid Calcium 7.2 L D Phosphorus 2.4 L Magnesium 1.6 L Total Bilirubin 0.3 D AST 163 H D ALT 162 H D Alkaline Phosphatase 177 H Creatine Kinase Troponin I Total Protein 6.0 L D Albumin 2.2 L D Active Medications Generic Name Dose Route Start Last Admin Trade Name Freq PRN Reason Stop Dose Admin Acetaminophen 1,000 mg 01/12/17 09:36 Ofirmev Injection - IVPB 01/13/17 03:37 Q6H PRN FEVER OR PAIN Enoxaparin Sodium 60 mg 01/12/17 10:00 Lovenox - SQ BID MARI Sodium Chloride 1,000 mls @ 75 mls/hr 01/12/17 09:11 01/12/17 09:38 Normal Saline - IV 75 mls/hr ASDIR MARI Administration Potassium Phosphate 21 mm/ 257 mls @ 62.5 mls/hr 01/12/17 11:47 Sodium Chloride IVPB 01/12/17 15:53 ONCE ONE Magnesium Sulfate 1 gm 01/12/17 11:47 Magnesium Sulfate IVPB 01/12/17 11:48 ONCE ONE Ondansetron HCl 4 mg 01/12/17 09:11 Zofran Injection IVPB Q6H PRN NAUSEA Pantoprazole Sodium 40 mg 01/12/17 10:00 01/12/17 09:38 Protonix 40mg Ivpb (Pre-Docked) IVPB 40 mg DAILY MARI Administration Piperacillin Sod/Tazobactam Sod 3.375 gm 01/12/17 10:30 Zosyn 3.375gm Ivpb (Pre-Docked) IVPB Q8H-IV MARI Protocol ASSESSMENT/PLAN: 81 yr old woman with Parkinson's disease, Alzheimer's dementia, GERD, HTN, HLD, osteopenia, admitted to ICU for saddle embolus. Hematological PE -likely from left lower DVT, pt has decreased mobility at home which may be the likely cause of VTE. Echo shows right heart strain, IR for catheter directed TPA today - heparin drip protocol r/o malignancy - as per son, patient has not been loosing weight she has been gain weight, I called Dr. rogel's for colonoscopy/mammogram results if recently completed - waiting for call back once her chart is located Pulmonary nasal cannula, titrate oxygen supplementation to maintain >90% Infectious disease infiltrates and cavitary lesion seen on chest xray - concern for malinancy vs infectious process(test for TB and legionella, bld cx pending) empiric abx with zosyn consult: dr. Cox Renal replete electrolytes as needed cote while patient is complete bedrest, will likely dc tomorrow Neurological dementia at baseline, wrist restraints for safety GI NPO for now due to vomiting at home and pending procedure Transaminitis likely due to vascular congestion from right heart strain, if continues to rise will investigate further DVT: lovenox Diet: NPO Activity: complete bedrest Visit type - Emergency Visit Emergency Visit: No - New Patient This patient is new to me today: Yes Date on this admission: 01/12/17 - Critical Care Critical Care patient: Yes Total Critical Care Time (in minutes): 35 Critical Care Statement: The care of this patient involved high complexity decision making to prevent further life threatening deterioration of the patient 's condition and/or to evalute & treat vital organ system(s) failure or risk of failure.
[2017-01-12] MEDS ORDERED: PT OWN MED DRAWER 7, Y5N ONE (11:50)
[2017-01-12] MEDS: PIPERACILLIN/TAZOB 3.375 GM/50 ML PRE-DOCKED IVPB SCH ×2 (11:51→17:50)
[2017-01-12] MEDS ORDERED: MAGNESIUM SULF 50% (8.12 MEQ/2 ML-1 GM VIAL) IVPB ONE (12:15)
[2017-01-12] MEDS ORDERED: POTASSIUM PHOSPHATE 21 MM in SODIUM CHLORIDE 250 ML IVPB ONE (13:00)
--- NOTE | 2017-01-12 13:11 | PN ---
Physical Exam: SUBJECTIVE: Overnight events noted. Patient stated she's feeling fine and has no complaints. OBJECTIVE: Vital Signs Period Temp Pulse Resp BP Sys/Mcdaniel Pulse Ox Last 24 Hr 98.1 F-98.7 F 82-96 20-32 88-130/53-75 94-98 GENERAL: AAO x 3, in no cardiopulmonary acute distress, on NC 2L HEAD: Normal with no signs of trauma. EYES: PERRLA, sclera anicteric, conjunctiva clear. No lid lag. EARS, NOSE, THROAT: oropharynx clear without exudates. Moist mucous membranes. NECK: Normal range of motion, supple without lymphadenopathy, JVD, or masses. LUNGS: Poor air entry, clear to ascultations bilaterally HEART: tachycardic, normal S1 and S2 without murmur, rub or gallop. ABDOMEN: Soft, diffusely tender, not distended, normoactive bowel sounds, no guarding, no rebound, no masses. EXTREMITIES: Weak pulses bilaterally. No peripheral edema. b/l cysts behind knees, b/l leg swelling CBCD WBC 11.5 K/mm3 (4.0-10.0) H D 01/12/17 09:20 RBC 3.59 M/mm3 (3.60-5.2) L D 01/12/17 09:20 Hgb 10.8 GM/dL (10.7-15.3) D 01/12/17 09:20 Hct 33.4 % (32.4-45.2) D 01/12/17 09:20 MCV 93.1 fl (80-96) 01/12/17 09:20 MCHC 32.5 g/dl (32.0-36.0) 01/12/17 09:20 RDW 13.9 % (11.6-15.6) 01/12/17 09:20 Plt Count 297 K/MM3 (134-434) 01/12/17 09:20 MPV 7.6 fl (7.5-11.1) 01/12/17 09:20 CMP Sodium 144 mmol/L (136-145) 01/12/17 09:20 Potassium 4.1 mmol/L (3.5-5.1) 01/12/17 09:20 Chloride 114 mmol/L (98-107) H D 01/12/17 09:20 Carbon Dioxide 17 mmol/L (21-32) L D 01/12/17 09:20 Anion Gap 13 (8-16) 01/12/17 09:20 BUN 7 mg/dL (7-18) D 01/12/17 09:20 Creatinine 0.6 mg/dL (0.55-1.02) 01/12/17 09:20 Creat Clearance w eGFR > 60 (>60) 01/12/17 09:20 Calcium 7.2 mg/dL (8.5-10.1) L D 01/12/17 09:20 Total Bilirubin 0.3 mg/dL (0.2-1.0) D 01/12/17 09:20 AST 163 U/L (15-37) H D 01/12/17 09:20 ALT 162 U/L (12-78) H D 01/12/17 09:20 Alkaline Phosphatase 177 U/L (45-117) H 01/12/17 09:20 Total Protein 6.0 g/dl (6.4-8.2) L D 01/12/17 09:20 Albumin 2.2 g/dl (3.4-5.0) L D 01/12/17 09:20 Intake & Output 01/09/17 01/10/17 01/11/17 01/12/17 23:59 23:59 23:59 23:59 Intake Total 362 Output Total 1000 300 Balance -1000 62 Weight 63.6 kg Active Medications Generic Name Dose Route Start Last Admin Trade Name Freq PRN Reason Stop Dose Admin Acetaminophen 1,000 mg 01/12/17 09:36 Ofirmev Injection - IVPB 01/13/17 03:37 Q6H PRN FEVER OR PAIN Enoxaparin Sodium 60 mg 01/12/17 10:00 Lovenox - SQ BID MARI Sodium Chloride 1,000 mls @ 75 mls/hr 01/12/17 09:11 01/12/17 09:38 Normal Saline - IV 75 mls/hr ASDIR MARI Administration Potassium Phosphate 21 mm/ 257 mls @ 51.4 mls/hr 01/12/17 13:00 Sodium Chloride IVPB 01/12/17 17:59 ONCE ONE Ondansetron HCl 4 mg 01/12/17 09:11 Zofran Injection IVPB Q6H PRN NAUSEA Pantoprazole Sodium 40 mg 01/12/17 10:00 01/12/17 09:38 Protonix 40mg Ivpb (Pre-Docked) IVPB 40 mg DAILY MARI Administration Piperacillin Sod/Tazobactam Sod 3.375 gm 01/12/17 10:30 01/12/17 11:51 Zosyn 3.375gm Ivpb (Pre-Docked) IVPB 3.375 gm Q8H-IV MARI Administration Protocol IMAGING CTA on 01/12: acute central PE with RV dilation, 3.5x3cm LLL cavity, RUL focal scarring, RLL opacity probably edema vs. hemorrhage, R pleural effusion Duplex of b/l leg on 01/12: R leg DVT ECHO on 01/12: pending CXR on 01/11: developing bibasilar consolidation Abd X-ray on 01/11: no acute pathology ASSESSMENT/PLAN: 81 yo F h/o HTN, HLD, dementia admitted to med-surg for CAP. Acute central PE with L leg DVT - With RV strain * pending ECHO * avoid fluids that could cause RV dilation - Catheter directed tPA planned - Remains hemodynamically stable * maintain MAP > 65 - Cont. lovenox therapuetic dose of 60mg BID * RIETE score ~ 2: low to intermediate bleeding risk from PE anticoagulation - Cont. O2 to maintain sat > 92% Severe Sepsis - Resolving - Lactic acid normalizing - Likely 2/2 lung mass ?infectious etiology - Received levaquin 750mg, azithromycin 500mg and rocephin 1g IV x 1 dose in ED - Received vanco 1gm x 2 doses in ICU - On zosyn 3.357mg Q8H - IV tylenol for fevers - Cont. MARI NS 75cc/hr - f/u urine and blood cultures Elevated cardiac enzyme - Resolving - Likely demand ischemia and R heart strain - Downward trend FEN - IVF 75cc/hr - Normal lytes - NPO Prophylaxis - DVT: lovenox - GI: protonix Dispo - Cont. to monitor in ICU Visit type - Emergency Visit Emergency Visit: No - New Patient This patient is new to me today: No - Critical Care Critical Care patient: Yes Total Critical Care Time (in minutes): 45 Critical Care Statement: The care of this patient involved high complexity decision making to prevent further life threatening deterioration of the patient 's condition and/or to evalute & treat vital organ system(s) failure or risk of failure.
--- NOTE | 2017-01-12 13:41 | PN ---
Teaching Attending Note Name of Resident: Jurgen James ATTENDING PHYSICIAN STATEMENT I saw and evaluated the patient. I reviewed the resident's note and discussed the case with the resident. I agree with the resident's findings and plan as documented. SUBJECTIVE:currently asymptomatic. denies CP, SOB, fever, chills, N/V/C/D OBJECTIVE: Last Vital Signs Temp Pulse Resp BP Pulse Ox 98.5 F 93 H 30 H 130/75 98 01/12/17 10:00 01/12/17 12:00 01/12/17 12:00 01/12/17 12:00 01/12/17 01:20 General NAD A&O x1 (self only) CV S1 S2 RRR no murmur/rub/gallop LUngs CTA B/L no wheezing or crackles Abdomen soft NT/ND Extremities no pedal edema or calf tenderness ASSESSMENT AND PLAN: 81yo F wtih PMH dementia presented to the ER with lethargy with nausea and vomiting and found to be septic due to PNA and to have saddle PE 1. Saddle PE- with R heart strain and LLE DVT. call placed to IR for intervention. currently hemodynamically stable. on full dose lovenox 2. Severe Sepsis due to PNA-lactic acidosis trending down. hypotension responded to IVF, received NS x5L. on CT cavitary lesion 3.5x3cm lesion on L side noted. started on Levaquin/zosyn/Vanco in the ER. ID consulted and currently on Zosyn. cont to trend lactic acid. quantiferon and Cx pending 3. Troponin leak- likely demand ischemia in setting of PE and sepsis. peaked at 0.38 and trending down. consult cardio due to heart strain seen on CT. may need ischemia eval done at later time. on full dose lovenox. echo pending for official read. 4. Transaminitis- likely due to hypoperfusion. check hepatitis panel. consider u /s and full workup if does not improve 5. MICU monitoring The care of this patient involved high complexity decision making to prevent further life threatening deterioration of the patient's condition and/or to evalute & treat vital organ system(s) failure or risk of failure. 45mins cc time
[2017-01-12] MEDS ORDERED: HEPARIN NA (PORCINE) 5,000 UNITS/ML 1ML VIAL IVPUSH PRN ×2 (14:56)
[2017-01-12] MEDS ORDERED: HEPARIN INFUSION - 500 ML IVPB ONE (14:59)
[2017-01-12] MEDS: HEPARIN - 25,000 UNIT in SODIUM CHLORIDE 495 ML IV SCH (15:00)
[2017-01-12] MEDS ORDERED: ALTEPLASE 50MG 25 MG in SODIUM CHLORIDE 250 ML IV ONE (15:00)
[2017-01-13] MEDS: PIPERACILLIN/TAZOB 3.375 GM/50 ML PRE-DOCKED IVPB SCH ×3 (01:36→19:00)
--- NOTE | 2017-01-13 04:49 | CON.CARD ---
Consult Consult Specialty:: cardiology Reason for Consultation:: shortness of breath; tachycardia. - History of Present Illness History of Present Illness: The patient's family states that she woke up complaining of abdominal pain and vomited a few times. The care worker states her last BM was yesterday but she is often constipated. They also have noticed a decrease in urination. They deny fever, cough, hemoptysis, CP, SOB, hematuria, diarrhea, hematemesis, hematochezia, melena. Vital signs on arrival are notable for pulse of 123. - History Source History Provided By: Patient, Family Member, Caregiver - Past Medical History SMOKE TESTER: Yes: Alzheimer's Cardio/Vascular: Yes: HTN, Hyperlipdemia Renal/: No: Renal Failure Reproductive: Yes: Postmenopausal ...: No - Alcohol/Substance Use Hx Alcohol Use: No - Smoking History Smoking history: Never smoked Have you smoked in the past 12 months: No Home Medications - Allergies Allergies/Adverse Reactions: Allergies Allergy/AdvReac Type Severity Reaction Status Date / Time No Known Allergies Allergy Verified 01/11/17 12:35 - Home Medications Home Medications: Ambulatory Orders Alendronate Na 70 mg PO DAILY 01/12/17 Calcium 600 mg PO BID 01/12/17 Mobic 15 mg PO DAILY 01/12/17 Namenda - 10 mg PO DAILY 01/12/17 Omeprazole Delayed Reslease 40 mg PO DAILY 01/12/17 Paroxetine Mesylate 10 mg PO DAILY 01/12/17 Plavix 75 mg PO DAILY 01/12/17 Zocor 40 mg PO DAILY 01/12/17 Family Disease History - Family Disease History Family History: Denies Review of Systems - Review of Systems Constitutional: reports: Weakness Eyes: reports: No Symptoms HENT: reports: No Symptoms Neck: reports: No Symptoms Cardiovascular: reports: Shortness of Breath Respiratory: reports: SOB Gastrointestinal: reports: No Symptoms Genitourinary: reports: No Symptoms Musculoskeletal: reports: Muscle Weakness Neurological: reports: Weakness - Risk Factors Known Risk Factors: Yes: Age Vital Signs: Vital Signs Temperature 98.4 F 01/13/17 02:00 Pulse Rate 73 01/13/17 04:00 Respiratory Rate 14 01/13/17 04:00 Blood Pressure 116/61 01/13/17 04:00 O2 Sat by Pulse Oximetry (%) 100 01/12/17 21:00 - Other Data Labs, Other Data: CBC, BMP 01/12/17 09:20 01/12/17 09:20 INR, PTT INR 1.35 (0.82-1.09) H 01/11/17 13:10 Troponin, BNP 01/12/17 05:20 Troponin I 0.17 H Troponin, BNP 01/12/17 05:20 Troponin I 0.17 H Imaging - Results Chest X-ray: Image Reviewed Cat Scan: Image Reviewed Ultrasound: Report Reviewed (normal LVEF; severe RV dilation and hypokinesis) Problem List - Problems (1) Lactic acid acidosis Code(s): E87.2 - ACIDOSIS (2) Pulmonary embolism Assessment/Plan: s/p TPa. Continue Lovenox or IV heparin. Normal LVEF; severely dilated RV, with severely reduced RVEF. Avoid dehydration. Code(s): I26.99 - OTHER PULMONARY EMBOLISM WITHOUT ACUTE COR PULMONALE (3) Sepsis Code(s): A41.9 - SEPSIS, UNSPECIFIED ORGANISM Qualifiers: Sepsis type: sepsis due to unspecified organism Qualified Code(s): A41.9 - Sepsis, unspecified organism (4) Elevated LFTs Code(s): R79.89 - OTHER SPECIFIED ABNORMAL FINDINGS OF BLOOD CHEMISTRY (5) Elevated troponin Assessment/Plan: EKG: sinus tachycrdia; no acute ST-T changes. acute PE, CHF, and sepsis are likely contributing factors to mild increase in TNI. Code(s): R74.8 - ABNORMAL LEVELS OF OTHER SERUM ENZYMES (6) Diastolic CHF Assessment/Plan: CXR: RLL consolidation. Acute PE. F/u BNP. Code(s): I50.30 - UNSPECIFIED DIASTOLIC (CONGESTIVE) HEART FAILURE
--- NOTE | 2017-01-13 06:19 | PN ---
Physical Exam: SUBJECTIVE: Patient seen and examined. laying in bed comfortably oriented to person. denies pain/hunger. requested water. in wrist restraints for safety OBJECTIVE: Vital Signs Period Temp Pulse Resp BP Sys/Mcdaniel Pulse Ox Last 24 Hr 97.8 F-99.3 F 73-112 14-32 91-169/54-94 100-100 GENERAL: The patient is awake, alert, in no acute distress. HEAD: Normal with no signs of trauma. EYES: PERRL, extraocular movements intact, sclera anicteric, conjunctiva clear. No ptosis. ENT: oropharynx clear without exudates, eduntulism, dry mucous membranes. NECK: Trachea midline, full range of motion, supple. LUNGS: Breath sounds equal, clear to auscultation bilaterally, no wheezes, no crackles, no accessory muscle use. quiet at bases HEART: Regular rate and rhythm, S1, S2 without murmur ABDOMEN: Soft, nontender, nondistended, normoactive bowel sounds, no guarding EXTREMITIES: 2+ radial pulses, 1+ DP pulses, cool feet, well-perfused, no edema. NEUROLOGICAL: Cranial nerves II through XII grossly intact. Normal speech, facial symmetry Handgrip 3/5 b/l, hip extension 2/5 b/l, Laboratory Results - last 24 hr 01/12/17 01/12/17 01/12/17 05:20 08:25 09:20 WBC 11.5 H D RBC 3.59 L D Hgb 10.8 D Hct 33.4 D MCV 93.1 MCHC 32.5 RDW 13.9 Plt Count 297 MPV 7.6 Neutrophils % 75.0 Lymphocytes % 15.1 D Monocytes % 9.2 D Eosinophils % 0.2 D Basophils % 0.5 PTT (Actin FS) Sodium Potassium Chloride Carbon Dioxide Anion Gap BUN Creatinine Creat Clearance w eGFR Random Glucose Lactic Acid 2.2 H* Calcium Phosphorus Magnesium Total Bilirubin AST ALT Alkaline Phosphatase Creatine Kinase 90 Troponin I 0.17 H Total Protein Albumin 01/12/17 01/13/17 09:20 00:00 WBC RBC Hgb Hct MCV MCHC RDW Plt Count MPV Neutrophils % Lymphocytes % Monocytes % Eosinophils % Basophils % PTT (Actin FS) 59.7 H D Sodium 144 Potassium 4.1 Chloride 114 H D Carbon Dioxide 17 L D Anion Gap 13 BUN 7 D Creatinine 0.6 Creat Clearance w eGFR > 60 Random Glucose 85 Lactic Acid Calcium 7.2 L D Phosphorus 2.4 L Magnesium 1.6 L Total Bilirubin 0.3 D AST 163 H D ALT 162 H D Alkaline Phosphatase 177 H Creatine Kinase Troponin I Total Protein 6.0 L D Albumin 2.2 L D Active Medications Generic Name Dose Route Start Last Admin Trade Name Freq PRN Reason Stop Dose Admin Heparin Sodium (Porcine) 1,000 unit 01/12/17 14:56 Heparin - IVPUSH PRN PRN Heparin Heparin Sodium (Porcine) 5,000 unit 01/12/17 14:56 Heparin - IVPUSH PRN PRN Heparin Sodium Chloride 1,000 mls @ 75 mls/hr 01/12/17 09:11 01/12/17 09:38 Normal Saline - IV 75 mls/hr ASDIR MARI Administration Alteplase, Recombinant 25 mg/ 250 mls @ 5 mls/hr 01/12/17 15:00 01/12/17 17:20 Sodium Chloride IV 01/14/17 16:59 5 mls/hr ONCE ONE Administration Alteplase, Recombinant 25 mg/ 250 mls @ 5 mls/hr 01/12/17 15:00 01/12/17 17:20 Sodium Chloride IV 01/14/17 16:59 5 mls/hr ONCE ONE Administration Heparin Sodium (Porcine) 25, 500 mls @ 16 mls/hr 01/12/17 15:00 01/12/17 15:00 000 unit/ Sodium Chloride IV 10 mls/hr TITR MARI Administration Protocol 800 UNIT/HR Ondansetron HCl 4 mg 01/12/17 09:11 Zofran Injection IVPB Q6H PRN NAUSEA Pantoprazole Sodium 40 mg 01/12/17 10:00 01/12/17 09:38 Protonix 40mg Ivpb (Pre-Docked) IVPB 40 mg DAILY MARI Administration Piperacillin Sod/Tazobactam Sod 3.375 gm 01/12/17 10:30 01/13/17 01:36 Zosyn 3.375gm Ivpb (Pre-Docked) IVPB 3.375 gm Q8H-IV MARI Administration Protocol ASSESSMENT/PLAN: 81 yr old woman with Parkinson's disease, Alzheimer's dementia, GERD, HTN, HLD, osteopenia, admitted to ICU for saddle embolus. - dr. claudio's office does not have advance directives or healthcare proxy forms in the chart Hematological PE -likely from left lower DVT, pt has decreased mobility at home which may be the likely cause of VTE. IR removed catheter and placed IVC filter today - heparin drip protocol to continue until NOAC started r/o malignancy - as per son, patient has not been loosing weight, she has been gaining weight, I called Dr. claudio's for colonoscopy/mammogram results if recently completed - Dr. Garcia started seeing patient for past 6 years, no record of colonoscopy or mammogram Pulmonary nasal cannula, titrate oxygen supplementation to maintain >90% Infectious disease infiltrates and cavitary lesion seen on chest xray - concern for malinancy vs infectious process(test for TB and legionella, bld cx pending) empiric abx with zosyn consult: dr. Cox Renal replete electrolytes as needed, calcium repleted today cote dc'd today Neurological dementia at baseline, wrist restraints for safety GI Transaminitis trending down tolerating PO DVT: heparin drip Diet: dysphagia chopped Activity: bedrest for 24hrs Dispo: can monitor on Med-surg floor Visit type - Emergency Visit Emergency Visit: No - New Patient This patient is new to me today: No - Critical Care Critical Care patient: Yes Total Critical Care Time (in minutes): 35 Critical Care Statement: The care of this patient involved high complexity decision making to prevent further life threatening deterioration of the patient 's condition and/or to evalute & treat vital organ system(s) failure or risk of failure.
[2017-01-13 06:51] LABS: BASOPHIL 0.4 % (0-2.0); EOSINOPHIL 0.3 % (0-4.5); MCH 29.5 pg (25.7-33.7); MCHC 32.3 g/dl (32.0-36.0); MEAN CELL VOLUME 91.4 fl (80-96); MEAN PLT VOLUME 7.4 fl (7.5-11.1); NEUTROPHILS 81.9 % (42.8-82.8); PLATELET COUNT 286 K/MM3 (134-434); RDW 13.6 % (11.6-15.6); WHITE BLOOD COUNT 13.4 K/mm3 (4.0-10.0)
[2017-01-13 07:01] LABS: INR 1.54 (0.82-1.09); PROTHROMBIN TIME (PATIENT) 17.1 SEC (9.98-11.88)
--- NOTE | 2017-01-13 07:33 | PN ---
Progress Note, Physician Chief Complaint: ID Stable Alert difficult to communicate with her in [place] but says from the [place] time Zosyn day 1 - Current Medication List Current Medications: Active Medications Heparin Sodium (Porcine) (Heparin -) 1,000 unit IVPUSH PRN PRN PRN Reason: Heparin Heparin Sodium (Porcine) (Heparin -) 5,000 unit IVPUSH PRN PRN PRN Reason: Heparin Sodium Chloride (Normal Saline -) 1,000 mls @ 75 mls/hr IV ASDIR MARI Last Admin: 01/12/17 09:38 Dose: 75 mls/hr Alteplase, Recombinant 25 mg/ (Sodium Chloride) 250 mls @ 5 mls/hr IV ONCE ONE Stop: 01/14/17 16:59 Last Admin: 01/12/17 17:20 Dose: 5 mls/hr Alteplase, Recombinant 25 mg/ (Sodium Chloride) 250 mls @ 5 mls/hr IV ONCE ONE Stop: 01/14/17 16:59 Last Admin: 01/12/17 17:20 Dose: 5 mls/hr Heparin Sodium (Porcine) 25, (000 unit/ Sodium Chloride) 500 mls @ 16 mls/hr IV TITR MARI; 800 UNIT/HR PRN Reason: Protocol Last Admin: 01/12/17 15:00 Dose: 10 mls/hr Ondansetron HCl (Zofran Injection) 4 mg IVPB Q6H PRN PRN Reason: NAUSEA Pantoprazole Sodium (Protonix 40mg Ivpb (Pre-Docked)) 40 mg IVPB DAILY MARI Last Admin: 01/12/17 09:38 Dose: 40 mg Piperacillin Sod/Tazobactam Sod (Zosyn 3.375gm Ivpb (Pre-Docked)) 3.375 gm IVPB Q8H-IV MARI PRN Reason: Protocol Last Admin: 01/13/17 01:36 Dose: 3.375 gm - Objective Vital Signs: Vital Signs Temperature 98.4 F 01/13/17 02:00 Pulse Rate 79 01/13/17 06:00 Respiratory Rate 21 01/13/17 06:00 Blood Pressure 115/75 01/13/17 06:00 O2 Sat by Pulse Oximetry (%) 100 01/12/17 21:00 Constitutional: Yes: Well Nourished, No Distress HENT: Yes: WNL, Atraumatic Neck: Yes: WNL, Supple Cardiovascular: Yes: Regular Rate and Rhythm, S1, S2. No: Murmur Respiratory: Yes: WNL, Regular, CTA Bilaterally, Diminished Gastrointestinal: Yes: WNL, Normal Bowel Sounds, Soft. No: Tenderness, Tenderness, Rebound Extremities: Yes: Other (Swelling left leg) Labs: CBC, BMP 01/13/17 05:20 INR, PTT INR 1.54 (0.82-1.09) H 01/13/17 05:20 Assessment/Plan Microbiology 01/11/17 13:10 Blood - Peripheral Venous Blood Culture - Preliminary NO GROWTH OBTAINED AFTER 24 HOURS, INCUBATION TO CONTINUE FOR 4 DAYS. 01/11/17 13:10 Blood - Peripheral Venous Blood Culture - Preliminary NO GROWTH OBTAINED AFTER 24 HOURS, INCUBATION TO CONTINUE FOR 4 DAYS. Laboratory Tests 01/11/17 01/12/17 01/13/17 13:36 09:20 05:20 WBC Hgb Hct Plt Count BUN 7 D Pending Creatinine 0.6 Pending Calcium 7.2 L D Total Bilirubin 0.3 D AST 163 H D ALT 162 H D Alkaline Phosphatase 177 H Albumin 2.2 L D Urine WBC 7 01/13/17 05:20 WBC 13.4 H Hgb 9.7 L D Hct 30.1 L Plt Count 286 BUN Creatinine Calcium Total Bilirubin AST ALT Alkaline Phosphatase Albumin Urine WBC Assessment Saddle pulmonary embolus pulmonary infarct ? infected with secondary bacterial infection vs stable RLL infiltrate Plan Continue current antibiotic as ordered Follow ESR and CRP Quant gold Pneumococcal AG Anupam HORN
[2017-01-13 07:39] LABS: ANION GAP 9 (8-16); CO2 24 mmol/L (21-32); GLUCOSE,RANDOM 100 mg/dL (74-106); MAGNESIUM 2.1 mg/dL (1.8-2.4)
[2017-01-13 07:45] LABS: CREATININE 0.6 mg/dL (0.55-1.02); PHOSPHOROUS 2.5 mg/dL (2.5-4.9); TROPONIN I 0.15 ng/ml (0.00-0.05)
[2017-01-13 07:53] LABS: CALCIUM 6.9 mg/dL (8.5-10.1)
[2017-01-13] MEDS ORDERED: CALCIUM GLUCONATE 10% - 1,000 MG/10 ML VIAL IVPB ONE (08:01)
[2017-01-13 08:02] LABS: TOT PROT 5.6 g/dl (6.4-8.2)
[2017-01-13 08:04] LABS: BILIRUBIN,DIRECT 0.1 mg/dL (0.0-0.2); BILIRUBIN,TOTAL 0.3 mg/dL (0.2-1.0); SGOT/AST 120 U/L (15-37)
[2017-01-13 08:05] LABS: ALK PHOS 151 U/L (45-117); SGPT/ALT 158 U/L (12-78)
[2017-01-13 11:30] LABS: C-REACTIVE PROTEIN 12.5 MG/DL (0.00-0.3)
--- NOTE | 2017-01-13 12:07 | PN ---
Progress Note, Physician History of Present Illness: The patient's family states that she woke up complaining of abdominal pain and vomited a few times. The care worker states her last BM was yesterday but she is often constipated. They also have noticed a decrease in urination. They deny fever, cough, hemoptysis, CP, SOB, hematuria, diarrhea, hematemesis, hematochezia, melena. - Current Medication List Current Medications: Active Medications Calcium Carbonate (Os-Pedro 500mg -) 500 mg PO BID MARI Heparin Sodium (Porcine) (Heparin -) 1,000 unit IVPUSH PRN PRN PRN Reason: Heparin Heparin Sodium (Porcine) (Heparin -) 5,000 unit IVPUSH PRN PRN PRN Reason: Heparin Sodium Chloride (Normal Saline -) 1,000 mls @ 75 mls/hr IV ASDIR MARI Last Admin: 01/12/17 09:38 Dose: 75 mls/hr Alteplase, Recombinant 25 mg/ (Sodium Chloride) 250 mls @ 5 mls/hr IV ONCE ONE Stop: 01/14/17 16:59 Last Admin: 01/12/17 17:20 Dose: 5 mls/hr Alteplase, Recombinant 25 mg/ (Sodium Chloride) 250 mls @ 5 mls/hr IV ONCE ONE Stop: 01/14/17 16:59 Last Admin: 01/12/17 17:20 Dose: 5 mls/hr Heparin Sodium (Porcine) 25, (000 unit/ Sodium Chloride) 500 mls @ 16 mls/hr IV TITR MARI; 800 UNIT/HR PRN Reason: Protocol Last Admin: 01/12/17 15:00 Dose: 10 mls/hr Famotidine/Sodium Chloride (Pepcid 20 Mg Premixed Ivpb -) 50 mls @ 100 mls/hr IVPB BID MARI Memantine (Namenda -) 10 mg PO DAILY MARI Ondansetron HCl (Zofran Injection) 4 mg IVPB Q6H PRN PRN Reason: NAUSEA Pantoprazole Sodium (Protonix -) 40 mg PO DAILY MARI Paroxetine HCl (Paxil -) 10 mg PO DAILY MARI Piperacillin Sod/Tazobactam Sod (Zosyn 3.375gm Ivpb (Pre-Docked)) 3.375 gm IVPB Q8H-IV MARI PRN Reason: Protocol Last Admin: 01/13/17 11:46 Dose: 3.375 gm - Objective Vital Signs: Vital Signs Temperature 98.1 F 01/13/17 10:00 Pulse Rate 84 01/13/17 12:00 Respiratory Rate 24 01/13/17 12:00 Blood Pressure 145/74 01/13/17 12:00 O2 Sat by Pulse Oximetry (%) 100 01/13/17 11:06 Eyes: Yes: WNL, Conjunctiva Clear, EOM Intact HENT: Yes: WNL, Atraumatic, Normocephalic Neck: Yes: WNL, Supple, Trachea Midline Cardiovascular: Yes: Regular Rate and Rhythm, S1, S2 Respiratory: Yes: WNL, Regular, CTA Bilaterally Gastrointestinal: Yes: WNL, Normal Bowel Sounds Genitourinary: Yes: WNL Musculoskeletal: Yes: WNL Extremities: Yes: WNL Edema: No Integumentary: Yes: WNL Neurological: Yes: WNL, Alert, Oriented ...Motor Strength: WNL Psychiatric: Yes: WNL Labs: CBC, BMP 01/13/17 05:20 01/13/17 05:20 INR, PTT INR 1.54 (0.82-1.09) H 01/13/17 05:20 Assessment/Plan - Problems (1) Lactic acid acidosis Code(s): E87.2 - ACIDOSIS (2) Pulmonary embolism Assessment/Plan: s/p TPa. Continue Lovenox or IV heparin. Normal LVEF; severely dilated RV, with severely reduced RVEF. Avoid dehydration. Code(s): I26.99 - OTHER PULMONARY EMBOLISM WITHOUT ACUTE COR PULMONALE (3) Sepsis Code(s): A41.9 - SEPSIS, UNSPECIFIED ORGANISM Qualifiers: Sepsis type: sepsis due to unspecified organism Qualified Code(s): A41.9 - Sepsis, unspecified organism (4) Elevated LFTs Code(s): R79.89 - OTHER SPECIFIED ABNORMAL FINDINGS OF BLOOD CHEMISTRY (5) Elevated troponin Assessment/Plan: EKG: sinus tachycrdia; no acute ST-T changes. acute PE, CHF, and sepsis are likely contributing factors to mild increase in TNI. Code(s): R74.8 - ABNORMAL LEVELS OF OTHER SERUM ENZYMES (6) Diastolic CHF Assessment/Plan: CXR: RLL consolidation. Acute PE. F/u BNP. Code(s): I50.30 - UNSPECIFIED DIASTOLIC (CONGESTIVE) HEART FAILURE critical care time 35 min
--- NOTE | 2017-01-13 12:20 | PN ---
Progress Note, PHARMACEUTICAL OPERATOR - Note Progress Note: 81 year old female admitted from home with acute onset of vomiting and abdominal pain. Noted to have PE, DVT, Left lower lobe cavitary mass- r/o abscess, r/o neoplasm , less likely TB TPA done. Full fluids ordered, and provided with no reports of overt signs of aspiration. Swallowing evaluation performed.Verbal, no dysarthria, oral perpheral cursory evaluation (-). Confused, disoriented, euphoric. Impaired memory. Swallowing is delayed, but fairly brisk once triggered. Able to masticate. Delayed throat clearing, cough following intake of thin liquid. She draws from a straw continuously, waving her hand to stop drinking and with responsive eye opening, however, continuing to suck from the straw. IMP: Suspect intermittent aspiration on thin liquid. REC: trial of Dysph chopped/nectar thick liquid. Monitor tolerance/indication for MBS
[2017-01-13] MEDS: FAMOTIDINE 20 MG/50 ML IVPB 50 ML IVPB SCH ×2 (12:21→22:36)
--- NOTE | 2017-01-13 12:44 | PN ---
Teaching Attending Note Name of Resident: Kaushik Kelly ATTENDING PHYSICIAN STATEMENT I saw and evaluated the patient. I reviewed the resident's note and discussed the case with the resident. I agree with the resident's findings and plan as documented. SUBJECTIVE: Pt seen and examined in the ICU. s/p catheter directed thrombectomy/ thrombolysis. OBJECTIVE: Last Vital Signs Temp Pulse Resp BP Pulse Ox 98.1 F 82 21 134/81 100 01/13/17 10:00 01/13/17 12:30 01/13/17 12:30 01/13/17 12:30 01/13/17 11:06 Intake & Output 01/10/17 01/11/17 01/12/17 01/13/17 23:59 23:59 23:59 23:59 Intake Total 1582 1460 Output Total 1000 1300 500 Balance -1000 282 960 Weight 140 lb 3.424 oz 139 lb 4 oz Gen: NAD at rest Heart: RRR Lung: decreased breath sounds at the bases Abd: soft, nontender Ext: no edema CBC, BMP 01/13/17 05:20 01/13/17 05:20 Active Medications Calcium Carbonate (Os-Pedro 500mg -) 500 mg PO BID MARI Heparin Sodium (Porcine) (Heparin -) 1,000 unit IVPUSH PRN PRN PRN Reason: Heparin Heparin Sodium (Porcine) (Heparin -) 5,000 unit IVPUSH PRN PRN PRN Reason: Heparin Sodium Chloride (Normal Saline -) 1,000 mls @ 75 mls/hr IV ASDIR MARI Last Admin: 01/12/17 09:38 Dose: 75 mls/hr Alteplase, Recombinant 25 mg/ (Sodium Chloride) 250 mls @ 5 mls/hr IV ONCE ONE Stop: 01/14/17 16:59 Last Admin: 01/12/17 17:20 Dose: 5 mls/hr Alteplase, Recombinant 25 mg/ (Sodium Chloride) 250 mls @ 5 mls/hr IV ONCE ONE Stop: 01/14/17 16:59 Last Admin: 01/12/17 17:20 Dose: 5 mls/hr Heparin Sodium (Porcine) 25, (000 unit/ Sodium Chloride) 500 mls @ 16 mls/hr IV TITR MARI; 800 UNIT/HR PRN Reason: Protocol Last Admin: 01/12/17 15:00 Dose: 10 mls/hr Famotidine/Sodium Chloride (Pepcid 20 Mg Premixed Ivpb -) 50 mls @ 100 mls/hr IVPB BID MARI Last Admin: 01/13/17 12:21 Dose: 100 mls/hr Memantine (Namenda -) 10 mg PO DAILY MARI Ondansetron HCl (Zofran Injection) 4 mg IVPB Q6H PRN PRN Reason: NAUSEA Pantoprazole Sodium (Protonix -) 40 mg PO DAILY MARI Paroxetine HCl (Paxil -) 10 mg PO DAILY [facility] Piperacillin Sod/Tazobactam Sod (Zosyn 3.375gm Ivpb (Pre-Docked)) 3.375 gm IVPB Q8H-IV MARI PRN Reason: Protocol Last Admin: 01/13/17 11:46 Dose: 3.375 gm ASSESSMENT AND PLAN: Acute Pulmonary Emboli LLE DVT s/p IVC filter Lung Mass HTN GERD Hyperlipidemia Alzheimer's Dementia - s/p catheter directed tPA - continue anticoagulation - antibiotics per ID - PO as tolerated - outpt f/u of chest imaging, pt apparently with poor functional status - can monitor on floor
--- NOTE | 2017-01-13 14:47 | PN ---
Teaching Attending Note Name of Resident: Jurgen James ATTENDING PHYSICIAN STATEMENT I saw and evaluated the patient. I reviewed the resident's note and discussed the case with the resident. I agree with the resident's findings and plan as documented. SUBJECTIVE: asymptomatic. deies CP, SOB, cough, fever, chills, hemoptysis, hematuria, BRBPR OBJECTIVE: Last Vital Signs Temp Pulse Resp BP Pulse Ox 98.1 F 83 28 H 136/88 100 01/13/17 10:00 01/13/17 14:00 01/13/17 14:00 01/13/17 14:00 01/13/17 11:06 General NAD A&O x1 (self only) CV S1 S2 RRR no murmur/rub/gallop LUngs CTA B/L anteriorly no wheezing or crackles ASSESSMENT AND PLAN: 81yo F wtih PMH dementia presented to the ER with lethargy with nausea and vomiting and found to be septic due to PNA and to have saddle PE 1. Saddle PE- with R heart strain and LLE DVT. s/p TPA directed catheter placed yesterday and removal done today. s/p IVC filter placement today 01/13. on hep ggt. will d/w tomorrow regarding starting noac at this time. will need workup done as outpatient to determine etiology of clot. 2. Severe Sepsis due to PNA-lactic acidosis resolved. no longer hypotensive. on Zosyn day 3. quantiferon and Cx pending 3. Troponin leak- likely demand ischemia in setting of PE and sepsis. peaked at 0.38 and trending down. cardio consulted. hemodynamically stable. will need to repeat echo. 4. Transaminitis- likely due to hypoperfusion. trending down. monitor 5. Pseudohypocalcemia- Corrected Ca 8.5 6. MICU monitoring. would monitor 24H post TPA removal in MICU 7. case d/w daughter present at bedside. answered all questions. verbalized understanding and agreement. The care of this patient involved high complexity decision making to prevent further life threatening deterioration of the patient's condition and/or to evaluate & treat vital organ system(s) failure or risk of failure. 40mins cc time
--- NOTE | 2017-01-13 14:51 | PN ---
Physical Exam: SUBJECTIVE: No acute events reported by the patient and nurse. OBJECTIVE: Vital Signs Period Temp Pulse Resp BP Sys/Mcdaniel Pulse Ox Last 24 Hr 97.8 F-99.3 F 73-112 14-30 91-175/54-97 98-100 GENERAL: AAO x 3, in no cardiopulmonary acute distress, on NC 2L HEAD: Normal with no signs of trauma. EYES: PERRLA, sclera anicteric, conjunctiva clear. No lid lag. EARS, NOSE, THROAT: oropharynx clear without exudates. Moist mucous membranes. NECK: Normal range of motion, supple without lymphadenopathy, JVD, or masses. LUNGS: Poor air entry, clear to ascultations bilaterally HEART: RRR, normal S1 and S2 without murmur, rub or gallop. ABDOMEN: Soft, diffusely tender, not distended, normoactive bowel sounds, no guarding, no rebound, no masses. EXTREMITIES: Weak pulses bilaterally. No peripheral edema. b/l cysts behind knees, b/l leg swelling CBCD WBC 13.4 K/mm3 (4.0-10.0) H 01/13/17 05:20 RBC 3.29 M/mm3 (3.60-5.2) L 01/13/17 05:20 Hgb 9.7 GM/dL (10.7-15.3) L D 01/13/17 05:20 Hct 30.1 % (32.4-45.2) L 01/13/17 05:20 MCV 91.4 fl (80-96) 01/13/17 05:20 MCHC 32.3 g/dl (32.0-36.0) 01/13/17 05:20 RDW 13.6 % (11.6-15.6) 01/13/17 05:20 Plt Count 286 K/MM3 (134-434) 01/13/17 05:20 MPV 7.4 fl (7.5-11.1) L 01/13/17 05:20 CMP Sodium 144 mmol/L (136-145) 01/13/17 05:20 Potassium 3.8 mmol/L (3.5-5.1) 01/13/17 05:20 Chloride 111 mmol/L (98-107) H 01/13/17 05:20 Carbon Dioxide 24 mmol/L (21-32) D 01/13/17 05:20 Anion Gap 9 (8-16) 01/13/17 05:20 BUN 7 mg/dL (7-18) 01/13/17 05:20 Creatinine 0.6 mg/dL (0.55-1.02) 01/13/17 05:20 Creat Clearance w eGFR > 60 (>60) 01/12/17 09:20 Calcium 6.9 mg/dL (8.5-10.1) L* 01/13/17 05:20 Total Bilirubin 0.3 mg/dL (0.2-1.0) 01/13/17 05:20 AST 120 U/L (15-37) H D 01/13/17 05:20 ALT 158 U/L (12-78) H 01/13/17 05:20 Alkaline Phosphatase 151 U/L (45-117) H 01/13/17 05:20 Total Protein 5.6 g/dl (6.4-8.2) L 01/13/17 05:20 Albumin 2.0 g/dl (3.4-5.0) L 01/13/17 05:20 Intake & Output 01/10/17 01/11/17 01/12/17 01/13/17 23:59 23:59 23:59 23:59 Intake Total 1582 1460 Output Total 1000 1300 500 Balance -1000 282 960 Weight 63.6 kg 63.163 kg Active Medications Generic Name Dose Route Start Last Admin Trade Name Freq PRN Reason Stop Dose Admin Calcium Carbonate 500 mg 01/13/17 22:00 Os-Pedro 500mg - PO BID MARI Heparin Sodium (Porcine) 1,000 unit 01/12/17 14:56 Heparin - IVPUSH PRN PRN Heparin Heparin Sodium (Porcine) 5,000 unit 01/12/17 14:56 Heparin - IVPUSH PRN PRN Heparin Sodium Chloride 1,000 mls @ 75 mls/hr 01/12/17 09:11 01/12/17 09:38 Normal Saline - IV 75 mls/hr ASDIR MARI Administration Alteplase, Recombinant 25 mg/ 250 mls @ 5 mls/hr 01/12/17 15:00 01/12/17 17:20 Sodium Chloride IV 01/14/17 16:59 5 mls/hr ONCE ONE Administration Alteplase, Recombinant 25 mg/ 250 mls @ 5 mls/hr 01/12/17 15:00 01/12/17 17:20 Sodium Chloride IV 01/14/17 16:59 5 mls/hr ONCE ONE Administration Heparin Sodium (Porcine) 25, 500 mls @ 16 mls/hr 01/12/17 15:00 01/12/17 15:00 000 unit/ Sodium Chloride IV 10 mls/hr TITR MARI Administration Protocol 800 UNIT/HR Famotidine/Sodium Chloride 50 mls @ 100 mls/hr 01/13/17 10:00 01/13/17 12:21 Pepcid 20 Mg Premixed Ivpb - IVPB 100 mls/hr BID MARI Administration Memantine 10 mg 01/14/17 10:00 Namenda - PO DAILY MARI Ondansetron HCl 4 mg 01/12/17 09:11 Zofran Injection IVPB Q6H PRN NAUSEA Pantoprazole Sodium 40 mg 01/14/17 10:00 Protonix - PO DAILY MARI Paroxetine HCl 10 mg 01/14/17 10:00 Paxil - PO DAILY MARI Piperacillin Sod/Tazobactam Sod 3.375 gm 01/12/17 10:30 01/13/17 11:46 Zosyn 3.375gm Ivpb (Pre-Docked) IVPB 3.375 gm Q8H-IV MARI Administration Protocol Microbiology 01/11/17 13:10 Blood Culture - Preliminary Blood - Peripheral Venous NO GROWTH OBTAINED AFTER 48 HOURS, INCUBATION TO CONTINUE FOR 3 DAYS. 01/11/17 13:10 Blood Culture - Preliminary Blood - Peripheral Venous NO GROWTH OBTAINED AFTER 48 HOURS, INCUBATION TO CONTINUE FOR 3 DAYS. 01/11/17 13:36 Urine Culture - Final Urine - Urine - Catheterized NO GROWTH OBTAINED 01/12/17 14:21 Legionella Antigen - Final Urine For Antigen Detection Streptococcus pneumoniae Antigen (M - Final IMAGING CTA on 01/12: acute central PE with RV dilation, 3.5x3cm LLL cavity, RUL focal scarring, RLL opacity probably edema vs. hemorrhage, R pleural effusion Duplex of b/l leg on 01/12: R leg DVT ECHO on 01/12: pending CXR on 01/11: developing bibasilar consolidation Abd X-ray on 01/11: no acute pathology ASSESSMENT/PLAN: 81 yo F h/o HTN, HLD, dementia admitted to med-surg for CAP. Acute central PE with L leg DVT - s/p Catheter directed tPA - Remains hemodynamically stable * maintain MAP > 65 - Cont. heparin gtt overnight * start NOAC tomorrow - Cont. O2 to maintain sat > 92% Severe Sepsis - Cont. to improve - Hemodynatically stable - Likely 2/2 lung mass ?infectious etiology - All cultures negative - Cont. zosyn 3.357mg Q8H day 2 - Cont. MARI NS 75cc/hr Elevated cardiac enzyme - Likely demand ischemia and R heart strain - Downward trend FEN - IVF 75cc/hr - Normal lytes with normal corrected Ca2+ - Dysphagia chopped Prophylaxis - DVT: on heparin gtt - GI: protonix Dispo - Cont. to monitor in ICU Visit type - Emergency Visit Emergency Visit: No - New Patient This patient is new to me today: No - Critical Care Critical Care patient: Yes Total Critical Care Time (in minutes): 35 Critical Care Statement: The care of this patient involved high complexity decision making to prevent further life threatening deterioration of the patient 's condition and/or to evalute & treat vital organ system(s) failure or risk of failure.
[2017-01-13] MEDS: HEPARIN - 25,000 UNIT in SODIUM CHLORIDE 495 ML IV SCH (18:13)
[2017-01-13] MEDS: SODIUM CHLORIDE 1,000 ML IV SCH (18:13)
[2017-01-13] MEDS ORDERED: PT OWN MED DRAWER 7, Y5N ONE ×2 (22:32→22:40)
[2017-01-13] MEDS: CALCIUM (OYSTER SHELL) 500 MG TABLET (FP) PO SCH (22:40)
[2017-01-14] MEDS: PIPERACILLIN/TAZOB 3.375 GM/50 ML PRE-DOCKED IVPB SCH ×3 (01:43→17:51)
[2017-01-14 07:03] LABS: MCH 29.9 pg (25.7-33.7); MEAN CELL VOLUME 90.6 fl (80-96); MEAN PLT VOLUME 7.4 fl (7.5-11.1); PLATELET COUNT 269 K/MM3 (134-434); RDW 13.3 % (11.6-15.6); WHITE BLOOD COUNT 10.3 K/mm3 (4.0-10.0)
[2017-01-14 07:07] LABS: CALCIUM 7.5 mg/dL (8.5-10.1)
[2017-01-14 07:13] LABS: ALK PHOS 141 U/L (45-117); ANION GAP 6 (8-16); BILIRUBIN,TOTAL 0.3 mg/dL (0.2-1.0); CO2 28 mmol/L (21-32); CREATININE 0.5 mg/dL (0.55-1.02); GLUCOSE,RANDOM 91 mg/dL (74-106); SGOT/AST 69 U/L (15-37); SGPT/ALT 120 U/L (12-78); TOT PROT 5.5 g/dl (6.4-8.2)
[2017-01-14 07:14] LABS: INR 1.43 (0.82-1.09); PROTHROMBIN TIME (PATIENT) 15.8 SEC (9.98-11.88)
[2017-01-14 07:16] LABS: ACTIVATED PTT 42.7 SECONDS (26.9-34.4)
[2017-01-14] MEDS ORDERED: POTASSIUM CHLORIDE ORAL LIQUID 20 MEQ/15 ML PO ONE (08:17)
--- NOTE | 2017-01-14 08:18 | PN ---
Physical Exam: SUBJECTIVE: Patient seen and examined. laying in bed, has no complaints. pleasant, smiles. OBJECTIVE: Vital Signs Period Temp Pulse Resp BP Sys/Mcdaniel Pulse Ox Last 24 Hr 98.0 F-98.7 F 64-94 12-29 86-175/62-92 98-100 GENERAL: The patient is awake, alert, oriented to person/birthday/age not location or situation. in no acute distress. HEAD: Normal with no signs of trauma. EYES: PERRL, extraocular movements intact, sclera anicteric, conjunctiva clear. No ptosis. ENT: oropharynx clear without exudates, eduntulism, moist mucous membranes. LUNGS: clear to auscultation bilaterally, no wheezes, no crackles, no accessory muscle use. quiet at bases HEART: Regular rate and rhythm, S1, S2 without murmur ABDOMEN: Soft, nontender, nondistended, normoactive bowel sounds, no guarding EXTREMITIES: 2+ radial pulses, 1+ DP pulses, cool feet, well-perfused, no edema. Laboratory Results - last 24 hr 01/13/17 01/13/17 01/13/17 05:20 07:20 08:00 WBC RBC Hgb Hct MCV MCHC RDW Plt Count MPV INR PTT (Actin FS) 61.4 H Sodium 144 Potassium 3.8 Chloride 111 H Carbon Dioxide 24 D Anion Gap 9 BUN 7 Creatinine 0.6 Creat Clearance w eGFR Random Glucose 100 Calcium 6.9 L* Phosphorus 2.5 Magnesium 2.1 D Total Bilirubin 0.3 Direct Bilirubin 0.1 AST 120 H D ALT 158 H Alkaline Phosphatase 151 H Troponin I 0.15 H C-Reactive Protein 12.5 H Cancelled Total Protein 5.6 L Albumin 2.0 L 01/14/17 01/14/17 01/14/17 05:15 05:15 05:15 WBC 10.3 H RBC 3.28 L Hgb 9.8 L Hct 29.7 L MCV 90.6 MCHC 33.0 RDW 13.3 Plt Count 269 MPV 7.4 L INR 1.43 H PTT (Actin FS) 42.7 H D Sodium 143 Potassium 3.2 L Chloride 109 H Carbon Dioxide 28 Anion Gap 6 L BUN 6 L Creatinine 0.5 L Creat Clearance w eGFR > 60 Random Glucose 91 Calcium 7.5 L Phosphorus Magnesium Total Bilirubin 0.3 Direct Bilirubin AST 69 H D ALT 120 H D Alkaline Phosphatase 141 H Troponin I C-Reactive Protein Total Protein 5.5 L Albumin 2.0 L Active Medications Generic Name Dose Route Start Last Admin Trade Name Lea PRN Reason Stop Dose Admin Calcium Carbonate 500 mg 01/13/17 22:00 01/13/17 22:40 Os-Pedro 500mg - PO 500 mg BID MARI Administration Heparin Sodium (Porcine) 1,000 unit 01/12/17 14:56 Heparin - IVPUSH PRN PRN Heparin Heparin Sodium (Porcine) 5,000 unit 01/12/17 14:56 Heparin - IVPUSH PRN PRN Heparin Sodium Chloride 1,000 mls @ 75 mls/hr 01/12/17 09:11 01/13/17 18:13 Normal Saline - IV 75 mls/hr ASDIR MARI Administration Alteplase, Recombinant 25 mg/ 250 mls @ 5 mls/hr 01/12/17 15:00 01/12/17 17:20 Sodium Chloride IV 01/14/17 16:59 5 mls/hr ONCE ONE Administration Alteplase, Recombinant 25 mg/ 250 mls @ 5 mls/hr 01/12/17 15:00 01/12/17 17:20 Sodium Chloride IV 01/14/17 16:59 5 mls/hr ONCE ONE Administration Heparin Sodium (Porcine) 25, 500 mls @ 16 mls/hr 01/12/17 15:00 01/14/17 08:00 000 unit/ Sodium Chloride IV 600 unit/hr TITR MARI Titration Protocol 800 UNIT/HR Famotidine/Sodium Chloride 50 mls @ 100 mls/hr 01/13/17 10:00 01/13/17 22:36 Pepcid 20 Mg Premixed Ivpb - IVPB 100 mls/hr BID MARI Administration Memantine 10 mg 01/14/17 10:00 Namenda - PO DAILY [facility] Ondansetron HCl 4 mg 01/12/17 09:11 Zofran Injection IVPB Q6H PRN NAUSEA Pantoprazole Sodium 40 mg 01/14/17 10:00 Protonix - PO DAILY [facility] Paroxetine HCl 10 mg 01/14/17 10:00 Paxil - PO DAILY [facility] Piperacillin Sod/Tazobactam Sod 3.375 gm 01/12/17 10:30 01/14/17 01:43 Zosyn 3.375gm Ivpb (Pre-Docked) IVPB 3.375 gm Q8H-IV MARI Administration Protocol Potassium Chloride 40 meq 01/14/17 08:17 Potassium Chloride Oral Liquid PO 01/14/17 08:18 ONCE ONE ASSESSMENT/PLAN: 81 yr old woman with Parkinson's disease, Alzheimer's dementia, GERD, HTN, HLD, osteopenia, admitted to ICU for saddle embolus. Hematological PE -likely from left lower DVT, pt has decreased mobility at home which may be the likely cause of VTE. s/p IVC filter placement and tpa - heparin drip protocol to continue until NOAC started r/o malignancy - as per son, patient has not been loosing weight, she has been gaining weight, I called Dr. claudio's for colonoscopy/mammogram results if recently completed - Dr. Garcia started seeing patient for past 6 years, no record of colonoscopy or mammogram - outpatient f/u with [facility] for mass evaluation, likely will need repeat imaging in 6-8 weeks. Pulmonary nasal cannula, titrate oxygen supplementation to maintain >90% Infectious disease infiltrates and cavitary lesion seen on chest xray - concern for malinancy vs infectious process(test for TB pending) empiric abx with zosyn consult: dr. Cox Renal replete electrolytes as needed Neurological dementia at baseline GI Transaminitis trending down tolerating PO DVT: heparin drip Diet: dysphagia pureed with nectar thick liquids Dispo: can monitor on Med-surg floor Activity: oob and physical therapy as tolerated Visit type - Emergency Visit Emergency Visit: No - New Patient This patient is new to me today: No - Critical Care Critical Care patient: Yes Total Critical Care Time (in minutes): 35 Critical Care Statement: The care of this patient involved high complexity decision making to prevent further life threatening deterioration of the patient 's condition and/or to evalute & treat vital organ system(s) failure or risk of failure.
[2017-01-14] MEDS ORDERED: HEPARIN INFUSION - 500 ML IVPB ONE (08:38)
[2017-01-14] MEDS: SODIUM CHLORIDE 1,000 ML IV SCH (09:15)
[2017-01-14] MEDS ORDERED: PT OWN MED DRAWER 7, Y5N ONE ×2 (09:21→09:57)
[2017-01-14] MEDS: CALCIUM (OYSTER SHELL) 500 MG TABLET (FP) PO SCH ×2 (09:29→21:47)
[2017-01-14] MEDS ORDERED: PANTOPRAZOLE 40 MG TABLET (FP) PO SCH (10:00)
[2017-01-14] MEDS ORDERED: MOBIC 15 MG PO SCH (10:00)
[2017-01-14] MEDS ORDERED: [UNRECOGNIZED DRUG - OTHER] PO SCH (10:00)
[2017-01-14] MEDS ORDERED: MEMANTINE HCL 10 MG TABLET (FP) PO SCH (10:00)
[2017-01-14] MEDS ORDERED: PARoxetine HCL 10 MG TABLET (FP) PO SCH (10:00)
[2017-01-14] MEDS: FAMOTIDINE 20 MG/50 ML IVPB 50 ML IVPB SCH ×2 (10:13→21:47)
--- NOTE | 2017-01-14 10:42 | PN ---
Progress Note, Physician History of Present Illness: Awake, alert Confused Breathing non-labored No cough noted Afebrile - Current Medication List Current Medications: Active Medications Calcium Carbonate (Os-Pedro 500mg -) 500 mg PO BID [facility] Last Admin: 01/14/17 09:29 Dose: 500 mg Heparin Sodium (Porcine) (Heparin -) 1,000 unit IVPUSH PRN PRN PRN Reason: Heparin Last Admin: 01/14/17 08:00 Dose: 1,000 unit Heparin Sodium (Porcine) (Heparin -) 5,000 unit IVPUSH PRN PRN PRN Reason: Heparin Sodium Chloride (Normal Saline -) 1,000 mls @ 75 mls/hr IV ASDIR [facility] Last Admin: 01/14/17 09:15 Dose: Not Given Alteplase, Recombinant 25 mg/ (Sodium Chloride) 250 mls @ 5 mls/hr IV ONCE ONE Stop: 01/14/17 16:59 Last Admin: 01/12/17 17:20 Dose: 5 mls/hr Alteplase, Recombinant 25 mg/ (Sodium Chloride) 250 mls @ 5 mls/hr IV ONCE ONE Stop: 01/14/17 16:59 Last Admin: 01/12/17 17:20 Dose: 5 mls/hr Heparin Sodium (Porcine) 25, (000 unit/ Sodium Chloride) 500 mls @ 16 mls/hr IV TITR MARI; 800 UNIT/HR PRN Reason: Protocol Last Titration: 01/14/17 08:00 Dose: 600 unit/hr Famotidine/Sodium Chloride (Pepcid 20 Mg Premixed Ivpb -) 50 mls @ 100 mls/hr IVPB BID [facility] Last Admin: 01/14/17 10:13 Dose: 100 mls/hr Memantine (Namenda -) 10 mg PO DAILY [facility] Last Admin: 01/14/17 09:29 Dose: 10 mg Ondansetron HCl (Zofran Injection) 4 mg IVPB Q6H PRN PRN Reason: NAUSEA Pantoprazole Sodium (Protonix -) 40 mg PO DAILY [facility] Last Admin: 01/14/17 09:30 Dose: 40 mg Paroxetine HCl (Paxil -) 10 mg PO DAILY [facility] Last Admin: 01/14/17 09:30 Dose: 10 mg Piperacillin Sod/Tazobactam Sod (Zosyn 3.375gm Ivpb (Pre-Docked)) 3.375 gm IVPB Q8H-IV MARI PRN Reason: Protocol Last Admin: 01/14/17 09:30 Dose: 3.375 gm - Objective Vital Signs: Vital Signs Temperature 98.1 F 01/14/17 10:00 Pulse Rate 81 01/14/17 10:00 Respiratory Rate 19 01/14/17 10:00 Blood Pressure 129/78 01/14/17 10:00 O2 Sat by Pulse Oximetry (%) 100 01/14/17 08:00 Constitutional: Yes: No Distress Eyes: Yes: Conjunctiva Clear Cardiovascular: Yes: Regular Rate and Rhythm, S1, S2 Respiratory: Yes: Diminished Gastrointestinal: Yes: Normal Bowel Sounds, Soft. No: Tenderness Edema: No Labs: CBC, BMP 01/14/17 05:15 01/14/17 05:15 INR, PTT INR 1.43 (0.82-1.09) H 01/14/17 05:15 Assessment/Plan Cavitary lung lesion PE RLL pneumonia Continue empiric zosyn
--- NOTE | 2017-01-14 11:27 | PN ---
Physical Exam: SUBJECTIVE: No acute events overnight in the ICU. OBJECTIVE: Vital Signs Period Temp Pulse Resp BP Sys/Mcdaniel Pulse Ox Last 24 Hr 98.0 F-98.7 F 64-94 12-29 86-175/62-92 100-100 GENERAL: AAO x 3, in no cardiopulmonary acute distress, on NC 2L HEAD: Normal with no signs of trauma. EYES: PERRLA, sclera anicteric, conjunctiva clear. No lid lag. EARS, NOSE, THROAT: oropharynx clear without exudates. Moist mucous membranes. NECK: Normal range of motion, supple without lymphadenopathy, JVD, or masses. LUNGS: CTAB HEART: RRR, normal S1 and S2 without murmur, rub or gallop. ABDOMEN: Soft, non-tender, not distended, normoactive bowel sounds, no guarding , no rebound, no masses. EXTREMITIES: Weak pulses bilaterally. No peripheral edema. b/l cysts behind knees, b/l leg swelling CBCD WBC 10.3 K/mm3 (4.0-10.0) H 01/14/17 05:15 RBC 3.28 M/mm3 (3.60-5.2) L 01/14/17 05:15 Hgb 9.8 GM/dL (10.7-15.3) L 01/14/17 05:15 Hct 29.7 % (32.4-45.2) L 01/14/17 05:15 MCV 90.6 fl (80-96) 01/14/17 05:15 MCHC 33.0 g/dl (32.0-36.0) 01/14/17 05:15 RDW 13.3 % (11.6-15.6) 01/14/17 05:15 Plt Count 269 K/MM3 (134-434) 01/14/17 05:15 MPV 7.4 fl (7.5-11.1) L 01/14/17 05:15 CMP Sodium 143 mmol/L (136-145) 01/14/17 05:15 Potassium 3.2 mmol/L (3.5-5.1) L 01/14/17 05:15 Chloride 109 mmol/L (98-107) H 01/14/17 05:15 Carbon Dioxide 28 mmol/L (21-32) 01/14/17 05:15 Anion Gap 6 (8-16) L 01/14/17 05:15 BUN 6 mg/dL (7-18) L 01/14/17 05:15 Creatinine 0.5 mg/dL (0.55-1.02) L 01/14/17 05:15 Creat Clearance w eGFR > 60 (>60) 01/14/17 05:15 Calcium 7.5 mg/dL (8.5-10.1) L 01/14/17 05:15 Total Bilirubin 0.3 mg/dL (0.2-1.0) 01/14/17 05:15 AST 69 U/L (15-37) H D 01/14/17 05:15 ALT 120 U/L (12-78) H D 01/14/17 05:15 Alkaline Phosphatase 141 U/L (45-117) H 01/14/17 05:15 Total Protein 5.5 g/dl (6.4-8.2) L 01/14/17 05:15 Albumin 2.0 g/dl (3.4-5.0) L 01/14/17 05:15 Intake & Output 01/11/17 01/12/17 01/13/17 01/14/17 23:59 23:59 23:59 23:59 Intake Total 1582 3920 745 Output Total 1000 1300 2400 Balance -7750 774 1534 745 Weight 63.6 kg 63.163 kg 61.405 kg Active Medications Generic Name Dose Route Start Last Admin Trade Name Freq PRN Reason Stop Dose Admin Calcium Carbonate 500 mg 01/13/17 22:00 01/14/17 09:29 Os-Pedro 500mg - PO 500 mg BID MARI Administration Heparin Sodium (Porcine) 1,000 unit 01/12/17 14:56 01/14/17 08:00 Heparin - IVPUSH 1,000 unit PRN PRN Administration Heparin Heparin Sodium (Porcine) 5,000 unit 01/12/17 14:56 Heparin - IVPUSH PRN PRN Heparin Sodium Chloride 1,000 mls @ 75 mls/hr 01/12/17 09:11 01/14/17 09:15 Normal Saline - IV Not Given ASDIR MARI Alteplase, Recombinant 25 mg/ 250 mls @ 5 mls/hr 01/12/17 15:00 01/12/17 17:20 Sodium Chloride IV 01/14/17 16:59 5 mls/hr ONCE ONE Administration Alteplase, Recombinant 25 mg/ 250 mls @ 5 mls/hr 01/12/17 15:00 01/12/17 17:20 Sodium Chloride IV 01/14/17 16:59 5 mls/hr ONCE ONE Administration Heparin Sodium (Porcine) 25, 500 mls @ 16 mls/hr 01/12/17 15:00 01/14/17 08:00 000 unit/ Sodium Chloride IV 600 unit/hr TITR MARI Titration Protocol 800 UNIT/HR Famotidine/Sodium Chloride 50 mls @ 100 mls/hr 01/13/17 10:00 01/14/17 10:13 Pepcid 20 Mg Premixed Ivpb - IVPB 100 mls/hr BID MARI Administration Memantine 10 mg 01/14/17 10:00 01/14/17 09:29 Namenda - PO 10 mg DAILY MARI Administration Ondansetron HCl 4 mg 01/12/17 09:11 Zofran Injection IVPB Q6H PRN NAUSEA Pantoprazole Sodium 40 mg 01/14/17 10:00 01/14/17 09:30 Protonix - PO 40 mg DAILY MARI Administration Paroxetine HCl 10 mg 01/14/17 10:00 01/14/17 09:30 Paxil - PO 10 mg DAILY MARI Administration Piperacillin Sod/Tazobactam Sod 3.375 gm 01/12/17 10:30 01/14/17 09:30 Zosyn 3.375gm Ivpb (Pre-Docked) IVPB 3.375 gm Q8H-IV MARI Administration Protocol Microbiology 01/11/17 13:10 Blood Culture - Preliminary Blood - Peripheral Venous NO GROWTH OBTAINED AFTER 48 HOURS, INCUBATION TO CONTINUE FOR 3 DAYS. 01/11/17 13:10 Blood Culture - Preliminary Blood - Peripheral Venous NO GROWTH OBTAINED AFTER 48 HOURS, INCUBATION TO CONTINUE FOR 3 DAYS. 01/11/17 13:36 Urine Culture - Final Urine - Urine - Catheterized NO GROWTH OBTAINED 01/12/17 14:21 Legionella Antigen - Final Urine For Antigen Detection Streptococcus pneumoniae Antigen (M - Final IMAGING CTA on 01/12: acute central PE with RV dilation, 3.5x3cm LLL cavity, RUL focal scarring, RLL opacity probably edema vs. hemorrhage, R pleural effusion Duplex of b/l leg on 01/12: R leg DVT ECHO on 01/12: pending CXR on 01/11: developing bibasilar consolidation Abd X-ray on 01/11: no acute pathology ASSESSMENT/PLAN: 81 yo F h/o HTN, HLD, dementia admitted to med-surg for CAP. Acute central PE with L leg DVT - s/p Catheter directed tPA * no sign of bleeding - Remains hemodynamically stable * maintain MAP > 65 - Cont. heparin gtt * will discuss with family regarding AC - Cont. O2 to maintain sat > 92% Severe Sepsis - Resolving - Hemodynatically stable - Likely 2/2 lung mass ?infectious etiology - All cultures negative - Cont. zosyn 3.357mg Q8H day 2 * will be discharged on augmentin for 3 weeks - Cont. MARI NS 75cc/hr Elevated cardiac enzyme - Likely demand ischemia and R heart strain - Downward trend FEN - IVF 75cc/hr - Normal lytes - Dysphagia chopped Prophylaxis - DVT: on heparin gtt - GI: pepcid Dispo - Transfer to med-surg - Pending discussion on NOVC vs. coumadin with family members Visit type - Emergency Visit Emergency Visit: No - New Patient This patient is new to me today: No - Critical Care Critical Care patient: Yes Total Critical Care Time (in minutes): 35 Critical Care Statement: The care of this patient involved high complexity decision making to prevent further life threatening deterioration of the patient 's condition and/or to evalute & treat vital organ system(s) failure or risk of failure.
--- NOTE | 2017-01-14 11:50 | PN ---
Teaching Attending Note Name of Resident: Kaushik Kelly ATTENDING PHYSICIAN STATEMENT I saw and evaluated the patient. I reviewed the resident's note and discussed the case with the resident. I agree with the resident's findings and plan as documented. SUBJECTIVE: Pt seen and examined in the ICU. Denies shortness of breath, chest pain or palpitations. OBJECTIVE: Last Vital Signs Temp Pulse Resp BP Pulse Ox 98.1 F 81 19 129/78 100 01/14/17 10:00 01/14/17 10:00 01/14/17 10:00 01/14/17 10:00 01/14/17 08:00 Intake & Output 01/11/17 01/12/17 01/13/17 01/14/17 23:59 23:59 23:59 23:59 Intake Total 1582 3920 745 Output Total 1000 1300 2400 Balance -0750 800 7554 745 Weight 140 lb 3.424 oz 139 lb 4 oz 135 lb 6 oz Gen: NAD at rest Heart: RRR Lung: decreased breath sounds at the bases Abd: soft, nontender Ext: no edema CBC, BMP 01/14/17 05:15 01/14/17 05:15 Active Medications Calcium Carbonate (Os-Pedro 500mg -) 500 mg PO BID [facility] Last Admin: 01/14/17 09:29 Dose: 500 mg Heparin Sodium (Porcine) (Heparin -) 1,000 unit IVPUSH PRN PRN PRN Reason: Heparin Last Admin: 01/14/17 08:00 Dose: 1,000 unit Heparin Sodium (Porcine) (Heparin -) 5,000 unit IVPUSH PRN PRN PRN Reason: Heparin Sodium Chloride (Normal Saline -) 1,000 mls @ 75 mls/hr IV ASDIR [facility] Last Admin: 01/14/17 09:15 Dose: Not Given Alteplase, Recombinant 25 mg/ (Sodium Chloride) 250 mls @ 5 mls/hr IV ONCE ONE Stop: 01/14/17 16:59 Last Admin: 01/12/17 17:20 Dose: 5 mls/hr Alteplase, Recombinant 25 mg/ (Sodium Chloride) 250 mls @ 5 mls/hr IV ONCE ONE Stop: 01/14/17 16:59 Last Admin: 01/12/17 17:20 Dose: 5 mls/hr Heparin Sodium (Porcine) 25, (000 unit/ Sodium Chloride) 500 mls @ 16 mls/hr IV TITR MARI; 800 UNIT/HR PRN Reason: Protocol Last Titration: 01/14/17 08:00 Dose: 600 unit/hr Famotidine/Sodium Chloride (Pepcid 20 Mg Premixed Ivpb -) 50 mls @ 100 mls/hr IVPB BID MARI Last Admin: 01/14/17 10:13 Dose: 100 mls/hr Memantine (Namenda -) 10 mg PO DAILY MARI Last Admin: 01/14/17 09:29 Dose: 10 mg Ondansetron HCl (Zofran Injection) 4 mg IVPB Q6H PRN PRN Reason: NAUSEA Pantoprazole Sodium (Protonix -) 40 mg PO DAILY [facility] Last Admin: 01/14/17 09:30 Dose: 40 mg Paroxetine HCl (Paxil -) 10 mg PO DAILY [facility]I Last Admin: 01/14/17 09:30 Dose: 10 mg Piperacillin Sod/Tazobactam Sod (Zosyn 3.375gm Ivpb (Pre-Docked)) 3.375 gm IVPB Q8H-IV MARI PRN Reason: Protocol Last Admin: 01/14/17 09:30 Dose: 3.375 gm ASSESSMENT AND PLAN: Acute Pulmonary Emboli LLE DVT s/p IVC filter Lung Mass HTN GERD Hyperlipidemia Alzheimer's Dementia - s/p catheter directed tPA - continue anticoagulation, can start oral agent - antibiotics per ID - PO as tolerated - will need outpt f/u of chest imaging - can monitor on floor
--- NOTE | 2017-01-14 12:44 | PN ---
Progress Note, [employer] - Note Progress Note: Extended mastication. Pt may tolerate dysphagia pureed food more efficiently. Selected Entries 01/14/17 01/14/17 01/14/17 02:00 08:00 10:00 Breakfast 0 Diet Tolerated Refused Temperature 98.2 F 98.0 F 98.5 F 01/14/17 01/14/17 01/14/17 12:00 12:12 14:00 Breakfast 0 Diet Tolerated Refused Temperature 98.1 F 97.9 F Rec: Puree/nectar Encourage Ensure compact/magic cup b/n meals Monitor PO tolerance
[2017-01-14] MEDS ORDERED: HEPARIN NA (PORCINE) 5,000 UNITS/ML 1ML VIAL IVPUSH PRN ×4 (14:55)
[2017-01-14] MEDS ORDERED: ONDANSETRON 4 MG/2 ML VIAL IVPB PRN (14:55)
[2017-01-14] MEDS ORDERED: HEPARIN - 25,000 UNIT in SODIUM CHLORIDE 495 ML IV SCH (14:55)
[2017-01-14] MEDS ORDERED: SODIUM CHLORIDE 1,000 ML IV SCH (14:55)
--- NOTE | 2017-01-14 16:17 | PN ---
Teaching Attending Note Name of Resident: Jurgen James ATTENDING PHYSICIAN STATEMENT I saw and evaluated the patient. I reviewed the resident's note and discussed the case with the resident. I agree with the resident's findings and plan as documented. SUBJECTIVE:asymptomatic. resting comfortable OBJECTIVE: Last Vital Signs Temp Pulse Resp BP Pulse Ox 97.9 F 81 20 144/78 100 01/14/17 14:00 01/14/17 14:00 01/14/17 14:00 01/14/17 14:00 01/14/17 08:00 General NAD A&O x1 (self only) CV S1 S2 RRR no murmur/rub/gallop LUngs CTA B/L anteriorly no wheezing or crackles ASSESSMENT AND PLAN: 81yo F wtih PMH dementia presented to the ER with lethargy with nausea and vomiting and found to be septic due to PNA and to have saddle PE 1. Saddle PE- with R heart strain and LLE DVT. s/p TPA directed catheter 01/12 and removed yesterday, s/p IVC filter placement 01/13. no bleeding. Hgb stable. on heparin ggt will transition to eliquis 10mg BID for PE treatment. 2. Severe Sepsis due to PNA-clinically improved. on Zosyn day 4. Cx all reported as negative. will d/w ID about transition to po agent and duration 3. Troponin leak- likely demand ischemia in setting of PE and sepsis. peaked at 0.38 and trending down. cardio consulted. hemodynamically stable. will need to repeat echo in several months 4. Transaminitis- likely due to hypoperfusion. trending down. monitor 5. Pseudohypocalcemia- Corrected Ca 8.5 6. stable for transfer to medical floors 7. case d/w daughter present at bedside. answered all questions. verbalized understanding and agreement. discussed risk/benefit of blood thinners. in agreement to SHARMILA placement when medically stable The care of this patient involved high complexity decision making to prevent further life threatening deterioration of the patient's condition and/or to evaluate & treat vital organ system(s) failure or risk of failure. 35 mins cc time
[2017-01-14] MEDS: APIXABAN 5 MG TABLET PO SCH ×2 (20:30→21:52)
[2017-01-14] MEDS ORDERED: APIXABAN 5 MG TABLET PO SCH (22:00)
--- NOTE | 2017-01-14 22:01 | PN ---
Progress Note, Physician Chief Complaint: Pt denies chest pain or dyspnea. History of Present Illness: The patient's family states that she woke up complaining of abdominal pain and vomited a few times. The care worker states her last BM was yesterday but she is often constipated. They also have noticed a decrease in urination. They deny fever, cough, hemoptysis, CP, SOB, hematuria, diarrhea, hematemesis, hematochezia, melena. Vital signs on arrival are notable for pulse of 123. - Current Medication List Current Medications: Active Medications Apixaban (Eliquis -) 10 mg PO BID [facility] Stop: 01/21/17 20:29 Last Admin: 01/14/17 21:52 Dose: Not Given Calcium Carbonate (Os-Pedro 500mg -) 500 mg PO BID [facility] Last Admin: 01/14/17 21:47 Dose: 500 mg Famotidine/Sodium Chloride (Pepcid 20 Mg Premixed Ivpb -) 50 mls @ 100 mls/hr IVPB BID [facility] Last Admin: 01/14/17 21:47 Dose: 100 mls/hr Memantine (Namenda -) 10 mg PO DAILY [facility] Ondansetron HCl (Zofran Injection) 4 mg IVPB Q6H PRN PRN Reason: NAUSEA Pantoprazole Sodium (Protonix -) 40 mg PO DAILY [facility] Paroxetine HCl (Paxil -) 10 mg PO DAILY [facility] Piperacillin Sod/Tazobactam Sod (Zosyn 3.375gm Ivpb (Pre-Docked)) 3.375 gm IVPB Q8H-IV [facility] PRN Reason: Protocol Last Admin: 01/14/17 17:51 Dose: 3.375 gm - Objective Vital Signs: Vital Signs Temperature 98.3 F 01/14/17 18:00 Pulse Rate 88 01/14/17 20:00 Respiratory Rate 20 01/14/17 20:00 Blood Pressure 149/83 01/14/17 20:00 O2 Sat by Pulse Oximetry (%) 100 01/14/17 08:00 Constitutional: Yes: Calm Eyes: Yes: WNL HENT: Yes: WNL Neck: Yes: WNL Cardiovascular: Yes: S1, S2, S4 Respiratory: Yes: Regular, Diminished Gastrointestinal: Yes: Soft ...Rectal Exam: Yes: Deferred Genitourinary: No: Anuria Breast(s): Yes: WNL Musculoskeletal: Yes: WNL Extremities: Yes: WNL Edema: No Peripheral Pulses WNL: Yes Neurological: Yes: Alert Psychiatric: Yes: Other (dementia; depression) Labs: CBC, BMP 01/14/17 05:15 01/14/17 05:15 INR, PTT INR 1.43 (0.82-1.09) H 01/14/17 05:15 - ....Imaging Other: Other (telemetry: NSR) Problem List - Problems (1) Lactic acid acidosis Code(s): E87.2 - ACIDOSIS (2) Pulmonary embolism Assessment/Plan: s/p TPa; AV thrombectomy. Change IV heparin to PO apixaban. Normal LVEF; severely dilated RV, with severely reduced RVEF (f/u ECHO in 3-6 months as outpatient). Avoid dehydration. Code(s): I26.99 - OTHER PULMONARY EMBOLISM WITHOUT ACUTE COR PULMONALE (3) Sepsis Code(s): A41.9 - SEPSIS, UNSPECIFIED ORGANISM Qualifiers: Qualified Code(s): A41.9 - Sepsis, unspecified organism (4) Elevated LFTs Code(s): R79.89 - OTHER SPECIFIED ABNORMAL FINDINGS OF BLOOD CHEMISTRY (5) Elevated troponin Assessment/Plan: EKG: sinus tachycrdia; no acute ST-T changes. demand ischemia, with acute PE, CHF, and sepsis contributing factors to increase in TNI. f/u lipids. Code(s): R74.8 - ABNORMAL LEVELS OF OTHER SERUM ENZYMES (6) Diastolic CHF Assessment/Plan: CXR: RLL consolidation. Acute PE. F/u BNP. Code(s): I50.30 - UNSPECIFIED DIASTOLIC (CONGESTIVE) HEART FAILURE
--- NOTE | 2017-01-14 22:25 | CONSULT ---
Consult - text type - Consultation Consultation Note: NEUROLOGY CONSULTATION is greatly appreciated: This 81 yo RH woman lives with her daughter. Well-known to me over many years with sever, progressive dementia (Familial, autosomal dominant Alzheimer's disease, AD). On Exelon patch (4.6 mg/day) and Namenda XR (28 mg). Feeling unwell with increased confusion and decreased PO food and water over 2 weeks. Admitted with fever, leukocytosis and lower lobe infiltrate, dehydration, hypocalcemia, hypomagnesemia and transaminitis. FANI: Neck supple. Neg Kernig's. no bruits. Coughing. NEURO: Awake, alert. Confused. Follows occ, simple, commands in [place] Gibberish speech. + Glabella, snout, suck, symmetrical grasps. Full cabrera to threat. Gag OK. No facial Moves all 4's symmetrically with rigid tone. Normal strength and reflexes. Toes downgoing. Widthdraws all fours to pinch. IMP: Non-focal exam sig for severe, B/L cerebral dysfunction. Familial Alzheimer's Disease. Toxic-Metabolic Encephalopathy. Suggest: Continue antibiotics and hydration. Follow lytes, LFT's. Check ammonia level, B12, TSH, B1. Add thiamine to IV fluids (1000mg/day x 3 days). Nutritional support. When medically stable resume exelon patch and mementine Rx. Thank you very much, Dexter Kebede MD
[2017-01-15] MEDS: PIPERACILLIN/TAZOB 3.375 GM/50 ML PRE-DOCKED IVPB SCH ×3 (01:15→17:29)
[2017-01-15 06:32] LABS: MEAN CELL VOLUME 90.8 fl (80-96); MEAN PLT VOLUME 6.9 fl (7.5-11.1); PLATELET COUNT 334 K/MM3 (134-434); RDW 13.5 % (11.6-15.6); WHITE BLOOD COUNT 11.7 K/mm3 (4.0-10.0)
[2017-01-15 06:53] LABS: ALBUMIN 2.4 g/dl (3.4-5.0); ALK PHOS 160 U/L (45-117); ANION GAP 8 (8-16); BILIRUBIN,TOTAL 0.4 mg/dL (0.2-1.0); CALCIUM 8.3 mg/dL (8.5-10.1); CO2 31 mmol/L (21-32); CREATININE 0.6 mg/dL (0.55-1.02); GLUCOSE,RANDOM 95 mg/dL (74-106); MAGNESIUM 2.1 mg/dL (1.8-2.4); PHOSPHOROUS 2.7 mg/dL (2.5-4.9); SGOT/AST 61 U/L (15-37); SGPT/ALT 115 U/L (12-78); TOT PROT 6.6 g/dl (6.4-8.2)
[2017-01-15] MEDS ORDERED: POTASSIUM CHLORIDE ORAL LIQUID 20 MEQ/15 ML PO ONE (07:26)
--- NOTE | 2017-01-15 07:28 | PN ---
Progress Note, Physician Chief Complaint: ID Continues on Zosyn AFEBRILE No distsress - Current Medication List Current Medications: Active Medications Apixaban (Eliquis -) 10 mg PO BID [facility] Stop: 01/21/17 20:29 Last Admin: 01/14/17 21:52 Dose: Not Given Calcium Carbonate (Os-Pedro 500mg -) 500 mg PO BID [facility] Last Admin: 01/14/17 21:47 Dose: 500 mg Famotidine/Sodium Chloride (Pepcid 20 Mg Premixed Ivpb -) 50 mls @ 100 mls/hr IVPB BID [facility] Last Admin: 01/14/17 21:47 Dose: 100 mls/hr Memantine (Namenda -) 10 mg PO DAILY [facility] Ondansetron HCl (Zofran Injection) 4 mg IVPB Q6H PRN PRN Reason: NAUSEA Pantoprazole Sodium (Protonix -) 40 mg PO DAILY [facility] Paroxetine HCl (Paxil -) 10 mg PO DAILY [facility] Piperacillin Sod/Tazobactam Sod (Zosyn 3.375gm Ivpb (Pre-Docked)) 3.375 gm IVPB Q8H-IV [facility] PRN Reason: Protocol Last Admin: 01/15/17 01:15 Dose: 3.375 gm - Objective Vital Signs: Vital Signs Temperature 98.4 F 01/15/17 06:00 Pulse Rate 90 01/15/17 06:00 Respiratory Rate 21 01/15/17 06:00 Blood Pressure 158/90 01/15/17 06:00 O2 Sat by Pulse Oximetry (%) 100 01/14/17 21:00 Constitutional: Yes: No Distress Neck: Yes: WNL, Supple Cardiovascular: Yes: Regular Rate and Rhythm, S1, S2. No: Murmur Respiratory: Yes: WNL, Regular, CTA Bilaterally Gastrointestinal: Yes: WNL, Normal Bowel Sounds, Soft. No: Splenomegaly, Tenderness, Tenderness, Rebound Edema: No Labs: CBC, BMP 01/15/17 05:15 01/15/17 05:15 INR, PTT INR 1.43 (0.82-1.09) H 01/14/17 05:15 Assessment/Plan Microbiology 01/12/17 14:21 Urine For Antigen Detection Legionella Antigen - Final 01/12/17 14:21 Urine For Antigen Detection Streptococcus pneumoniae Antigen (M - Final 01/11/17 13:10 Blood - Peripheral Venous Blood Culture - Preliminary NO GROWTH OBTAINED AFTER 72 HOURS, INCUBATION TO CONTINUE FOR 2 DAYS. 01/11/17 13:10 Blood - Peripheral Venous Blood Culture - Preliminary NO GROWTH OBTAINED AFTER 72 HOURS, INCUBATION TO CONTINUE FOR 2 DAYS. Laboratory Tests 01/12/17 01/12/17 01/14/17 05:20 09:20 05:15 WBC Hgb Plt Count ESR 44 H BUN Creatinine AST 163 H D ALT 162 H D Alkaline Phosphatase 177 H Troponin I 0.17 H 01/15/17 01/15/17 05:15 05:15 WBC 11.7 H Hgb 12.2 D Plt Count 334 D ESR BUN 5 L Creatinine 0.6 AST 61 H ALT 115 H Alkaline Phosphatase 160 H Troponin I Assessment Cavitary lung lesion in the setting of large saddle embolus lung ? Pulmonary infarct Possible secondary infection considered thus antibiotics Plan Await quant gold though TB less likeley Empiric antibiotic Will need follow up CT chest in the future Anupam HORN
[2017-01-15] MEDS ORDERED: POTASSIUM CHLORIDE ORAL LIQUID 20 MEQ/15 ML ONE (09:58)
[2017-01-15] MEDS: FAMOTIDINE 20 MG/50 ML IVPB 50 ML IVPB SCH ×2 (09:59→21:09)
[2017-01-15] MEDS: THIAMINE HCL 100 MG TABLET (FP) PO SCH (10:00)
[2017-01-15] MEDS ORDERED: PANTOPRAZOLE 40 MG TABLET (FP) PO SCH (10:00)
[2017-01-15] MEDS: MEMANTINE HCL 10 MG TABLET (FP) PO SCH (10:00)
[2017-01-15] MEDS ORDERED: PT OWN MED DRAWER 7, Y5N ONE ×3 (10:01→22:19)
[2017-01-15] MEDS: PARoxetine HCL 10 MG TABLET (FP) PO SCH (10:01)
[2017-01-15] MEDS: CALCIUM (OYSTER SHELL) 500 MG TABLET (FP) PO SCH ×2 (10:01→21:48)
[2017-01-15] MEDS: APIXABAN 5 MG TABLET PO SCH ×2 (10:02→21:09)
[2017-01-15 10:49] LABS: THYROID STIMULATING HORMONE 4.63 uIU/ml (0.358-3.74)
--- NOTE | 2017-01-15 11:33 | PN ---
Teaching Attending Note Name of Resident: Jurgen James ATTENDING PHYSICIAN STATEMENT I saw and evaluated the patient. I reviewed the resident's note and discussed the case with the resident. I agree with the resident's findings and plan as documented. SUBJECTIVE:asymptomatic. denies CP, SOB,fever, chills, N/V/C/D OBJECTIVE: Last Vital Signs Temp Pulse Resp BP Pulse Ox 98.9 F 87 20 144/83 96 01/15/17 10:00 01/15/17 10:00 01/15/17 10:00 01/15/17 10:01/15/17 08:00 General NAD A&O x1 (self only) CV S1 S2 RRR no murmur/rub/gallop LUngs CTA B/L anteriorly no wheezing or crackles ASSESSMENT AND PLAN: 81yo F wtih PMH dementia presented to the ER with lethargy with nausea and vomiting and found to be septic due to PNA and to have saddle PE 1. Saddle PE- with R heart strain and LLE DVT. s/p TPA directed catheter 01/12 and removed yesterday, s/p IVC filter placement 01/13. no bleeding. Hgb stable. on eliquis 10mg BID for PE treatment x7days then decrease to 5mg BID. repeat echo to see if R heart strain has improved in 3-6months 2. Severe Sepsis due to PNA-clinically improved. on Zosyn day 5. can likely switch to po augmentin for several weeks. awaiting quantiferon gold to r/o TB but low suspicion. 3. Troponin leak- likely demand ischemia in setting of PE and sepsis. peaked at 0.38 and trending down. cardio consulted. hemodynamically stable. will need to repeat echo in several months 4. Transaminitis- likely due to hypoperfusion. trending down. 5. Pseudohypocalcemia- Corrected Ca 8.5 6. stable for transfer to medical floors. awaiting placement for SHARMILA The care of this patient involved high complexity decision making to prevent further life threatening deterioration of the patient's condition and/or to evaluate & treat vital organ system(s) failure or risk of failure. 38 mins cc time
--- NOTE | 2017-01-15 12:10 | PN ---
Teaching Attending Note Name of Resident: Kaushik Kelly ATTENDING PHYSICIAN STATEMENT I saw and evaluated the patient. I reviewed the resident's note and discussed the case with the resident. I agree with the resident's findings and plan as documented. SUBJECTIVE: Patient seen and examined in the ICU. Denies shortness of breath, chest pain or palpitations. Remains mildly confused. OBJECTIVE: Intake & Output 01/12/17 01/13/17 01/14/17 01/15/17 23:59 23:59 23:59 23:59 Intake Total 1582 3920 1752 170 Output Total 1300 2400 Balance 282 1520 1752 170 Weight 139 lb 4 oz 135 lb 6 oz 129 lb 6.4 oz Last Vital Signs Temp Pulse Resp BP Pulse Ox 98.9 F 87 20 144/83 96 01/15/17 10:00 01/15/17 10:00 01/15/17 10:00 01/15/17 10:00 01/15/17 08:00 Active Medications Amlodipine Besylate (Norvasc -) 2.5 mg PO DAILY [facility] Apixaban (Eliquis -) 10 mg PO BID [facility] Stop: 01/21/17 20:29 Last Admin: 01/15/17 10:02 Dose: 10 mg Calcium Carbonate (Os-Pedro 500mg -) 500 mg PO BID [facility] Last Admin: 01/15/17 10:01 Dose: 500 mg Famotidine/Sodium Chloride (Pepcid 20 Mg Premixed Ivpb -) 50 mls @ 100 mls/hr IVPB BID [facility] Last Admin: 01/15/17 09:59 Dose: 100 mls/hr Memantine (Namenda -) 10 mg PO DAILY [facility] Last Admin: 01/15/17 10:00 Dose: 10 mg Ondansetron HCl (Zofran Injection) 4 mg IVPB Q6H PRN PRN Reason: NAUSEA Pantoprazole Sodium (Protonix -) 40 mg PO DAILY [facility] Last Admin: 01/15/17 10:02 Dose: 40 mg Paroxetine HCl (Paxil -) 10 mg PO DAILY [facility] Last Admin: 01/15/17 10:01 Dose: 10 mg Piperacillin Sod/Tazobactam Sod (Zosyn 3.375gm Ivpb (Pre-Docked)) 3.375 gm IVPB Q8H-IV [facility] PRN Reason: Protocol Last Admin: 01/15/17 09:59 Dose: 3.375 gm Rivastigmine Tartrate (Exelon (Nf) -) 1.5 mg PO BID [facility] Thiamine HCl (Vitamin B1 -) 100 mg PO DAILY [facility] Last Admin: 01/15/17 10:00 Dose: 100 mg Gen: NAD at rest Heart: RRR Lung: decreased breath sounds at the bases Abd: soft, nontender Ext: no edema Laboratory Results - last 24 hr 01/14/17 01/15/17 01/15/17 15:10 05:15 05:15 WBC 11.7 H RBC 4.07 D Hgb 12.2 D Hct 37.0 D MCV 90.8 MCHC 33.0 RDW 13.5 Plt Count 334 D MPV 6.9 L PTT (Actin FS) 35.3 H 46.1 H D Sodium Potassium Chloride Carbon Dioxide Anion Gap BUN Creatinine Creat Clearance w eGFR Random Glucose Calcium Phosphorus Magnesium Total Bilirubin AST ALT Alkaline Phosphatase Ammonia Total Protein Albumin Vitamin B12 TSH 01/15/17 01/15/17 01/15/17 05:15 09:52 09:52 WBC RBC Hgb Hct MCV MCHC RDW Plt Count MPV PTT (Actin FS) Sodium 144 Potassium 3.5 Chloride 105 Carbon Dioxide 31 Anion Gap 8 BUN 5 L Creatinine 0.6 Creat Clearance w eGFR > 60 Random Glucose 95 Calcium 8.3 L Phosphorus 2.7 Magnesium 2.1 Total Bilirubin 0.4 D AST 61 H ALT 115 H Alkaline Phosphatase 160 H Ammonia 11.67 Total Protein 6.6 Albumin 2.4 L Vitamin B12 1110 H TSH 4.63 H ASSESSMENT AND PLAN: Acute Pulmonary Emboli LLE DVT s/p IVC filter LLL Lung Mass / cavitary lesion HTN GERD Hyperlipidemia Alzheimer's Dementia - s/p catheter directed tPA - continue anticoagulation - antibiotics per ID - PO as tolerated - will need outpt f/u of chest imaging for the LLL mass - Floor Dr De Leon Critical care time spent in reviewing chart, evaluating patient and formulating plan 35 min
[2017-01-15] MEDS: amLODIPine BESYLATE 2.5 MG TABLET (FP) PO SCH (13:25)
--- NOTE | 2017-01-15 15:02 | PN ---
Progress Note, [employer] - Note Progress Note: Intermittent acceptance of diet/meds. Accepted crushed meds in applesauce without difficulty and tolerated ensure compact without signs of aspiration. Selected Entries 01/14/17 01/14/17 01/14/17 02:00 08:00 10:00 Supper Temperature 98.2 F 98.0 F 98.5 F 01/14/17 01/14/17 01/14/17 12:00 14:00 16:00 Supper Temperature 98.1 F 97.9 F 98.0 F 01/14/17 01/14/17 01/14/17 18:00 20:30 22:00 Supper 75% Temperature 98.3 F 98.9 F 01/15/17 01/15/17 01/15/17 02:00 06:00 10:00 Supper Temperature 98.2 F 98.4 F 98.9 F 01/15/17 14:00 Supper Temperature 97.6 F
--- NOTE | 2017-01-15 16:42 | PN ---
Physical Exam: SUBJECTIVE: Patient seen and examined laying comfortably in bed, offers no complaints, pleasant. asked about her children, whether they would be coming today. not oriented to place, date or situation. OBJECTIVE: Vital Signs Period Temp Pulse Resp BP Sys/Mcdaniel Pulse Ox Last 24 Hr 97.6 F-98.9 F 77-102 19-26 132-158/76-94 96-100 GENERAL: The patient is awake, alert, oriented to person/birthday/age not location or situation. in no acute distress. EYES: PERRL, extraocular movements intact, sclera anicteric, conjunctiva clear. No ptosis. ENT: oropharynx clear without exudates, with dentures in place. moist mucous membranes. cather dressing CDI LUNGS: clear to auscultation bilaterally, quiet at bases HEART: Regular rate and rhythm, S1, S2 without murmur ABDOMEN: Soft, nontender, nondistended, normoactive bowel sounds, no guarding EXTREMITIES: 2+ radial pulses, 1+ DP pulses, cool feet, well-perfused, no edema. Laboratory Results - last 24 hr 01/15/17 01/15/17 01/15/17 05:15 05:15 05:15 WBC 11.7 H RBC 4.07 D Hgb 12.2 D Hct 37.0 D MCV 90.8 MCHC 33.0 RDW 13.5 Plt Count 334 D MPV 6.9 L PTT (Actin FS) 46.1 H D Sodium 144 Potassium 3.5 Chloride 105 Carbon Dioxide 31 Anion Gap 8 BUN 5 L Creatinine 0.6 Creat Clearance w eGFR > 60 Random Glucose 95 Calcium 8.3 L Phosphorus 2.7 Magnesium 2.1 Total Bilirubin 0.4 D AST 61 H ALT 115 H Alkaline Phosphatase 160 H Ammonia Total Protein 6.6 Albumin 2.4 L Vitamin B12 TSH 01/15/17 01/15/17 09:52 09:52 WBC RBC Hgb Hct MCV MCHC RDW Plt Count MPV PTT (Actin FS) Sodium Potassium Chloride Carbon Dioxide Anion Gap BUN Creatinine Creat Clearance w eGFR Random Glucose Calcium Phosphorus Magnesium Total Bilirubin AST ALT Alkaline Phosphatase Ammonia 11.67 Total Protein Albumin Vitamin B12 1110 H TSH 4.63 H Active Medications Generic Name Dose Route Start Last Admin Trade Name Freq PRN Reason Stop Dose Admin Amlodipine Besylate 2.5 mg 01/15/17 11:45 01/15/17 13:25 Norvasc - PO 2.5 mg DAILY [facility] Administration Apixaban 10 mg 01/14/17 20:30 01/15/17 10:02 Eliquis - PO 01/21/17 20:29 10 mg BID [facility] Administration Calcium Carbonate 500 mg 01/14/17 22:00 01/15/17 10:01 Os-Pedro 500mg - PO 500 mg BID [facility] Administration Famotidine/Sodium Chloride 50 mls @ 100 mls/hr 01/14/17 22:00 01/15/17 09:59 Pepcid 20 Mg Premixed Ivpb - IVPB 100 mls/hr BID [facility] Administration Memantine 10 mg 01/15/17 10:00 01/15/17 10:00 Namenda - PO 10 mg DAILY [facility] Administration Ondansetron HCl 4 mg 01/14/17 14:55 Zofran Injection IVPB Q6H PRN NAUSEA Pantoprazole Sodium 40 mg 01/15/17 10:00 01/15/17 10:02 Protonix - PO 40 mg DAILY [facility] Administration Paroxetine HCl 10 mg 01/15/17 10:00 01/15/17 10:01 Paxil - PO 10 mg DAILY [facility] Administration Piperacillin Sod/Tazobactam Sod 3.375 gm 01/14/17 18:00 01/15/17 09:59 Zosyn 3.375gm Ivpb (Pre-Docked) IVPB 3.375 gm Q8H-IV [facility] Administration Protocol Rivastigmine Tartrate 1.5 mg 01/15/17 10:00 Exelon (Nf) - PO BID [facility] Thiamine HCl 100 mg 01/15/17 10:00 01/15/17 10:00 Vitamin B1 - PO 100 mg DAILY [facility] Administration ASSESSMENT/PLAN: 81 yr old woman with Parkinson's disease, Alzheimer's dementia, GERD, HTN, HLD, osteopenia, admitted to ICU for saddle embolus. Hematological PE -likely from left lower DVT, pt has decreased mobility at home which may be the likely cause of VTE. s/p IVC filter placement and tpa eliquis initiated - outpatient f/u with health center manager for mass evaluation, likely will need repeat imaging in 6-8 weeks. Pulmonary nasal cannula, titrate oxygen supplementation to maintain >90% Infectious disease infiltrates and cavitary lesion seen on chest xray - concern for malinancy vs infectious process(test for TB pending) empiric abx with zosyn consult: dr. Cox Renal replete electrolytes as needed Neurological dementia at baseline GI Transaminitis trending down tolerating PO DVT: heparin drip Diet: dysphagia pureed with nectar thick liquids Dispo: can monitor on Med-surg floor, [facility] human resources compliance manager working on SNF placement for rehab Activity: oob and physical therapy as tolerated Visit type - Emergency Visit Emergency Visit: No - New Patient This patient is new to me today: No - Critical Care Critical Care patient: Yes Total Critical Care Time (in minutes): 34 Critical Care Statement: The care of this patient involved high complexity decision making to prevent further life threatening deterioration of the patient 's condition and/or to evalute & treat vital organ system(s) failure or risk of failure.
--- NOTE | 2017-01-15 17:23 | PN ---
Physical Exam: SUBJECTIVE No acute events overnight in the ICU. OBJECTIVE: Vital Signs Period Temp Pulse Resp BP Sys/Mcdaniel Pulse Ox Last 24 Hr 97.6 F-98.9 F 77-102 19-26 132-158/76-94 96-100 GENERAL: AAO x 3, in no cardiopulmonary acute distress, on NC 2L HEAD: Normal with no signs of trauma. EYES: PERRLA, sclera anicteric, conjunctiva clear. No lid lag. EARS, NOSE, THROAT: oropharynx clear without exudates. Moist mucous membranes. NECK: Normal range of motion, supple without lymphadenopathy, JVD, or masses. LUNGS: CTAB HEART: RRR, normal S1 and S2 without murmur, rub or gallop. ABDOMEN: Soft, non-tender, not distended, normoactive bowel sounds, no guarding , no rebound, no masses. EXTREMITIES: Weak pulses bilaterally. No peripheral edema. b/l cysts behind knees, b/l leg swelling CBCD WBC 11.7 K/mm3 (4.0-10.0) H 01/15/17 05:15 RBC 4.07 M/mm3 (3.60-5.2) D 01/15/17 05:15 Hgb 12.2 GM/dL (10.7-15.3) D 01/15/17 05:15 Hct 37.0 % (32.4-45.2) D 01/15/17 05:15 MCV 90.8 fl (80-96) 01/15/17 05:15 MCHC 33.0 g/dl (32.0-36.0) 01/15/17 05:15 RDW 13.5 % (11.6-15.6) 01/15/17 05:15 Plt Count 334 K/MM3 (134-434) D 01/15/17 05:15 MPV 6.9 fl (7.5-11.1) L 01/15/17 05:15 CMP Sodium 144 mmol/L (136-145) 01/15/17 05:15 Potassium 3.5 mmol/L (3.5-5.1) 01/15/17 05:15 Chloride 105 mmol/L (98-107) 01/15/17 05:15 Carbon Dioxide 31 mmol/L (21-32) 01/15/17 05:15 Anion Gap 8 (8-16) 01/15/17 05:15 BUN 5 mg/dL (7-18) L 01/15/17 05:15 Creatinine 0.6 mg/dL (0.55-1.02) 01/15/17 05:15 Creat Clearance w eGFR > 60 (>60) 01/15/17 05:15 Calcium 8.3 mg/dL (8.5-10.1) L 01/15/17 05:15 Total Bilirubin 0.4 mg/dL (0.2-1.0) D 01/15/17 05:15 AST 61 U/L (15-37) H 01/15/17 05:15 ALT 115 U/L (12-78) H 01/15/17 05:15 Alkaline Phosphatase 160 U/L (45-117) H 01/15/17 05:15 Total Protein 6.6 g/dl (6.4-8.2) 01/15/17 05:15 Albumin 2.4 g/dl (3.4-5.0) L 01/15/17 05:15 Active Medications Generic Name Dose Route Start Last Admin Trade Name Freq PRN Reason Stop Dose Admin Amlodipine Besylate 2.5 mg 01/15/17 11:45 01/15/17 13:25 Norvasc - PO 2.5 mg DAILY MARI Administration Apixaban 10 mg 01/14/17 20:30 01/15/17 10:02 Eliquis - PO 01/21/17 20:29 10 mg BID MARI Administration Calcium Carbonate 500 mg 01/14/17 22:00 01/15/17 10:01 Os-Pedro 500mg - PO 500 mg BID MARI Administration Famotidine/Sodium Chloride 50 mls @ 100 mls/hr 01/14/17 22:00 01/15/17 09:59 Pepcid 20 Mg Premixed Ivpb - IVPB 100 mls/hr BID MARI Administration Memantine 10 mg 01/15/17 10:00 01/15/17 10:00 Namenda - PO 10 mg DAILY MARI Administration Ondansetron HCl 4 mg 01/14/17 14:55 Zofran Injection IVPB Q6H PRN NAUSEA Pantoprazole Sodium 40 mg 01/15/17 10:00 01/15/17 10:02 Protonix - PO 40 mg DAILY MARI Administration Paroxetine HCl 10 mg 01/15/17 10:00 01/15/17 10:01 Paxil - PO 10 mg DAILY MARI Administration Piperacillin Sod/Tazobactam Sod 3.375 gm 01/14/17 18:00 01/15/17 09:59 Zosyn 3.375gm Ivpb (Pre-Docked) IVPB 3.375 gm Q8H-IV MARI Administration Protocol Rivastigmine Tartrate 1.5 mg 01/15/17 10:00 Exelon (Nf) - PO BID MARI Thiamine HCl 100 mg 01/15/17 10:00 01/15/17 10:00 Vitamin B1 - PO 100 mg DAILY MARI Administration Microbiology 01/14/17 05:15 TB Test (QFT) (EFRAIN) - Preliminary Blood - Peripheral Venous 01/11/17 13:10 Blood Culture - Preliminary Blood - Peripheral Venous NO GROWTH OBTAINED AFTER 96 HOURS, INCUBATION TO CONTINUE FOR 1 DAYS. 01/11/17 13:10 Blood Culture - Preliminary Blood - Peripheral Venous NO GROWTH OBTAINED AFTER 96 HOURS, INCUBATION TO CONTINUE FOR 1 DAYS. IMAGING CTA on 01/12: acute central PE with RV dilation, 3.5x3cm LLL cavity, RUL focal scarring, RLL opacity probably edema vs. hemorrhage, R pleural effusion Duplex of b/l leg on 01/12: R leg DVT ECHO on 01/12: pending CXR on 01/11: developing bibasilar consolidation Abd X-ray on 01/11: no acute pathology ASSESSMENT/PLAN: 81 yo F h/o HTN, HLD, dementia admitted to med-surg for CAP. Acute central PE with L leg DVT - s/p Catheter directed tPA * no sign of bleeding - Remains hemodynamically stable * maintain MAP > 65 - On eliquis 10mg bid x 7 days - Cont. O2 to maintain sat > 92% Severe Sepsis - Resolved - Hemodynatically stable - Likely 2/2 lung mass ?infectious etiology - All cultures negative - Cont. zosyn 3.357mg Q8H day 3 * will be discharged on augmentin for 3 weeks HTN - Started norvasc 2.5mg daily Elevated cardiac enzyme - Likely demand ischemia and R heart strain - Downward trend FEN - IVF not indicated - Normal lytes - Dysphagia chopped Prophylaxis - DVT: on eliquis - GI: pepcid Dispo - Transfer to med-surg Visit type - Emergency Visit Emergency Visit: No - New Patient This patient is new to me today: No - Critical Care Critical Care patient: Yes Total Critical Care Time (in minutes): 40 Critical Care Statement: The care of this patient involved high complexity decision making to prevent further life threatening deterioration of the patient 's condition and/or to evalute & treat vital organ system(s) failure or risk of failure.
[2017-01-15] MEDS: RIVASTIGMINE TARTRATE 1.5 MG CAPSULE PO SCH ×2 (17:26→21:09)
--- NOTE | 2017-01-15 20:01 | PN ---
Progress Note, Physician Chief Complaint: Pt pleasant; disoriented to time, place, person; denies chest pain or dyspnea. History of Present Illness: The patient's family states that she woke up complaining of abdominal pain and vomited a few times. The care worker states her last BM was yesterday but she is often constipated. They also have noticed a decrease in urination. They deny fever, cough, hemoptysis, CP, SOB, hematuria, diarrhea, hematemesis, hematochezia, melena. Vital signs on arrival are notable for pulse of 123. - Current Medication List Current Medications: Active Medications Amlodipine Besylate (Norvasc -) 2.5 mg PO DAILY [facility] Last Admin: 01/15/17 13:25 Dose: 2.5 mg Apixaban (Eliquis -) 10 mg PO BID [facility] Stop: 01/21/17 20:29 Last Admin: 01/15/17 10:02 Dose: 10 mg Calcium Carbonate (Os-Pedro 500mg -) 500 mg PO BID [facility] Last Admin: 01/15/17 10:01 Dose: 500 mg Famotidine/Sodium Chloride (Pepcid 20 Mg Premixed Ivpb -) 50 mls @ 100 mls/hr IVPB BID [facility] Last Admin: 01/15/17 09:59 Dose: 100 mls/hr Memantine (Namenda -) 10 mg PO DAILY [facility] Last Admin: 01/15/17 10:00 Dose: 10 mg Ondansetron HCl (Zofran Injection) 4 mg IVPB Q6H PRN PRN Reason: NAUSEA Paroxetine HCl (Paxil -) 10 mg PO DAILY [facility] Last Admin: 01/15/17 10:01 Dose: 10 mg Piperacillin Sod/Tazobactam Sod (Zosyn 3.375gm Ivpb (Pre-Docked)) 3.375 gm IVPB Q8H-IV MARI PRN Reason: Protocol Last Admin: 01/15/17 17:29 Dose: 3.375 gm Rivastigmine Tartrate (Exelon (Nf) -) 1.5 mg PO BID [facility] Last Admin: 01/15/17 17:26 Dose: 1.5 mg Thiamine HCl (Vitamin B1 -) 100 mg PO DAILY [facility] Last Admin: 01/15/17 10:00 Dose: 100 mg - Objective Vital Signs: Vital Signs Temperature 98.2 F 01/15/17 18:00 Pulse Rate 97 H 01/15/17 18:00 Respiratory Rate 18 01/15/17 18:00 Blood Pressure 137/84 01/15/17 18:00 O2 Sat by Pulse Oximetry (%) 96 01/15/17 09:00 Constitutional: Yes: Calm Eyes: Yes: WNL HENT: Yes: WNL Neck: Yes: WNL Cardiovascular: Yes: Regular Rate and Rhythm Respiratory: Yes: Diminished Gastrointestinal: Yes: Soft ...Rectal Exam: Yes: Deferred Genitourinary: No: Anuria Breast(s): Yes: WNL Musculoskeletal: Yes: Muscle Weakness Extremities: Yes: WNL Edema: No Peripheral Pulses WNL: Yes Integumentary: Yes: WNL Neurological: Yes: Confusion Psychiatric: Yes: Other (dementia) Labs: CBC, BMP 01/15/17 05:15 01/15/17 05:15 INR, PTT INR 1.43 (0.82-1.09) H 01/14/17 05:15 - ....Imaging Other: Image Reviewed (telemetry: NSR) Problem List - Problems (1) Lactic acid acidosis Code(s): E87.2 - ACIDOSIS (2) Pulmonary embolism Assessment/Plan: s/p TPa; AV thrombectomy. Changed IV heparin to PO apixaban. Normal LVEF; severely dilated RV, with severely reduced RVEF (f/u ECHO in 3-6 months as outpatient). Avoid dehydration. Code(s): I26.99 - OTHER PULMONARY EMBOLISM WITHOUT ACUTE COR PULMONALE (3) Sepsis Assessment/Plan: On antibiotics; f/u C/s. Dementia: on namenda and SSRI. Code(s): A41.9 - SEPSIS, UNSPECIFIED ORGANISM Qualifiers: Qualified Code(s): A41.9 - Sepsis, unspecified organism (4) Elevated LFTs Code(s): R79.89 - OTHER SPECIFIED ABNORMAL FINDINGS OF BLOOD CHEMISTRY (5) Elevated troponin Assessment/Plan: EKG: sinus tachycrdia; no acute ST-T changes. demand ischemia, with acute PE, CHF, and sepsis contributing factors to increase in TNI. f/u lipids. hypothyroid: f/u Free T3 and free T4. Code(s): R74.8 - ABNORMAL LEVELS OF OTHER SERUM ENZYMES (6) Diastolic CHF Assessment/Plan: CXR: RLL consolidation. Acute PE. F/u BNP. Code(s): I50.30 - UNSPECIFIED DIASTOLIC (CONGESTIVE) HEART FAILURE
[2017-01-16] MEDS: PIPERACILLIN/TAZOB 3.375 GM/50 ML PRE-DOCKED IVPB SCH ×3 (01:18→17:14)
[2017-01-16 07:41] LABS: MCH 30.3 pg (25.7-33.7); MCHC 33.6 g/dl (32.0-36.0); MEAN CELL VOLUME 90.3 fl (80-96); PLATELET COUNT 371 K/MM3 (134-434); RDW 13.4 % (11.6-15.6); WHITE BLOOD COUNT 11.9 K/mm3 (4.0-10.0)
[2017-01-16 07:56] LABS: ALBUMIN 2.4 g/dl (3.4-5.0); ALK PHOS 153 U/L (45-117); ANION GAP 9 (8-16); BILIRUBIN,TOTAL 0.3 mg/dL (0.2-1.0); CALCIUM 8.7 mg/dL (8.5-10.1); CO2 27 mmol/L (21-32); CREATININE 0.6 mg/dL (0.55-1.02); GLUCOSE,RANDOM 94 mg/dL (74-106); SGOT/AST 58 U/L (15-37); SGPT/ALT 96 U/L (12-78); TOT PROT 6.4 g/dl (6.4-8.2)
[2017-01-16 09:36] LABS: CHOLESTEROL 148 mg/dL (50-200); LDL CHOLESTEROL (ONLY SJRH) 87 mg/dL (5-100)
[2017-01-16 09:36] LABS: FREE T4 1.59 ng/dl (0.76-1.46)
[2017-01-16] MEDS: MEMANTINE HCL 10 MG TABLET (FP) PO SCH (10:04)
[2017-01-16] MEDS: FAMOTIDINE 20 MG/50 ML IVPB 50 ML IVPB SCH ×2 (10:04→23:38)
[2017-01-16] MEDS: PARoxetine HCL 10 MG TABLET (FP) PO SCH (10:05)
[2017-01-16] MEDS: amLODIPine BESYLATE 2.5 MG TABLET (FP) PO SCH (10:05)
[2017-01-16] MEDS: THIAMINE HCL 100 MG TABLET (FP) PO SCH (10:10)
[2017-01-16] MEDS: CALCIUM (OYSTER SHELL) 500 MG TABLET (FP) PO SCH ×2 (10:10→23:38)
[2017-01-16] MEDS: APIXABAN 5 MG TABLET PO SCH ×2 (10:14→23:38)
[2017-01-16] MEDS: RIVASTIGMINE TARTRATE 1.5 MG CAPSULE PO SCH ×2 (10:15→23:39)
--- NOTE | 2017-01-16 10:20 | PN ---
Progress Note (short form) - Note Progress Note: resting comfortable. denies CP, SOB,fever, chills, N/V/C/D Current Medications Generic Name Dose Route Start Last Admin Trade Name Lea PRN Reason Stop Dose Admin Amlodipine Besylate 2.5 mg 01/15/17 11:45 01/15/17 13:25 Norvasc - PO 2.5 mg DAILY MARI Administration Apixaban 10 mg 01/14/17 20:30 01/15/17 21:09 Eliquis - PO 01/21/17 20:29 10 mg BID MARI Administration Calcium Carbonate 500 mg 01/14/17 22:00 01/15/17 21:48 Os-Pedro 500mg - PO 500 mg BID MARI Administration Famotidine/Sodium Chloride 50 mls @ 100 mls/hr 01/14/17 22:00 01/15/17 21:09 Pepcid 20 Mg Premixed Ivpb - IVPB 100 mls/hr BID MARI Administration Memantine 10 mg 01/15/17 10:00 01/15/17 10:00 Namenda - PO 10 mg DAILY MARI Administration Ondansetron HCl 4 mg 01/14/17 14:55 Zofran Injection IVPB Q6H PRN NAUSEA Paroxetine HCl 10 mg 01/15/17 10:00 01/15/17 10:01 Paxil - PO 10 mg DAILY MARI Administration Piperacillin Sod/Tazobactam Sod 3.375 gm 01/14/17 18:00 01/16/17 01:18 Zosyn 3.375gm Ivpb (Pre-Docked) IVPB 3.375 gm Q8H-IV MARI Administration Protocol Rivastigmine Tartrate 1.5 mg 01/15/17 10:00 01/15/17 21:09 Exelon (Nf) - PO 1.5 mg BID MARI Administration Thiamine HCl 100 mg 01/15/17 10:00 01/15/17 10:00 Vitamin B1 - PO 100 mg DAILY MARI Administration Last Vital Signs Temp Pulse Resp BP Pulse Ox 97.8 F 85 20 133/79 97 01/16/17 05:00 01/16/17 05:00 01/16/17 05:00 01/16/17 05:00 01/15/17 23:25 General NAD A&O x1 (self only) CV S1 S2 RRR no murmur/rub/gallop LUngs CTA B/L anteriorly no wheezing or crackles abdomen soft NT/ND Extremities no pedal edema CBCD WBC 11.9 K/mm3 (4.0-10.0) H 01/16/17 06:00 RBC 3.84 M/mm3 (3.60-5.2) 01/16/17 06:00 Hgb 11.7 GM/dL (10.7-15.3) 01/16/17 06:00 Hct 34.7 % (32.4-45.2) 01/16/17 06:00 MCV 90.3 fl (80-96) 01/16/17 06:00 MCHC 33.6 g/dl (32.0-36.0) 01/16/17 06:00 RDW 13.4 % (11.6-15.6) 01/16/17 06:00 Plt Count 371 K/MM3 (134-434) 01/16/17 06:00 MPV 7.0 fl (7.5-11.1) L 01/16/17 06:00 CMP Sodium 142 mmol/L (136-145) 01/16/17 06:00 Potassium 3.8 mmol/L (3.5-5.1) 01/16/17 06:00 Chloride 106 mmol/L (98-107) 01/16/17 06:00 Carbon Dioxide 27 mmol/L (21-32) 01/16/17 06:00 Anion Gap 9 (8-16) 01/16/17 06:00 BUN 5 mg/dL (7-18) L 01/16/17 06:00 Creatinine 0.6 mg/dL (0.55-1.02) 01/16/17 06:00 Creat Clearance w eGFR > 60 (>60) 01/16/17 06:00 Calcium 8.7 mg/dL (8.5-10.1) 01/16/17 06:00 Total Bilirubin 0.3 mg/dL (0.2-1.0) D 01/16/17 06:00 AST 58 U/L (15-37) H 01/16/17 06:00 ALT 96 U/L (12-78) H 01/16/17 06:00 Alkaline Phosphatase 153 U/L (45-117) H 01/16/17 06:00 Total Protein 6.4 g/dl (6.4-8.2) 01/16/17 06:00 Albumin 2.4 g/dl (3.4-5.0) L 01/16/17 06:00 ASSESSMENT AND PLAN: 81yo F wtih PMH dementia presented to the ER with lethargy with nausea and vomiting and found to be septic due to PNA and to have saddle PE 1. Saddle PE- with R heart strain and LLE DVT. s/p TPA directed catheter 01/12, s/p IVC filter placement 01/13. no bleeding. Hgb stable. on eliquis 10mg BID for PE treatment x7days then decrease to 5mg BID. repeat echo to see if R heart strain has improved in 3-6months 2. Severe Sepsis due to PNA-clinically improved. on Zosyn day 6. can likely switch to po augmentin for several weeks. awaiting quantiferon gold to r/o TB but low suspicion. 3. Troponin leak- likely demand ischemia in setting of PE and sepsis. peaked at 0.38 and trending down. cardio consulted. hemodynamically stable. will need to repeat echo in several months 4. Transaminitis- likely due to hypoperfusion. trending down. 5. Pseudohypocalcemia- Corrected Ca 8.5 6. medically optimized for discharge. awaiting insurance authorization for SHARMILA Visit type - Emergency Visit Emergency Visit: Yes ED Registration Date: 01/11/17 Care time: The patient presented to the Emergency Department on the above date and was hospitalized for further evaluation of their emergent condition. - New Patient This patient is new to me today: No - Critical Care Critical Care patient: No - Discharge Referral Referred to [facility] Med P.C.: No
--- NOTE | 2017-01-16 11:20 | PN ---
Progress Note (short form) - Note Progress Note: PULMONARY APPEARS STABLE/NONVERBAL VSS/AFEBRILE Gen: NAD at rest Heart: RRR Lung: decreased breath sounds at the bases Abd: soft, nontender Ext: no edema Acute Pulmonary Emboli LLE DVT s/p IVC filter LLL Lung Mass / cavitary lesion HTN GERD Hyperlipidemia Alzheimer's Dementia - s/p catheter directed tPA - continue anticoagulation - antibiotics per ID - PO as tolerated - will need outpt f/u of chest imaging for the LLL mass Radha VIRK MD
--- NOTE | 2017-01-16 14:14 | PN ---
Progress Note, Physician History of Present Illness: The patient's family states that she woke up complaining of abdominal pain and vomited a few times. The care worker states her last BM was yesterday but she is often constipated. They also have noticed a decrease in urination. They deny fever, cough, hemoptysis, CP, SOB, hematuria, diarrhea, hematemesis, hematochezia, melena. - Current Medication List Current Medications: Active Medications Amlodipine Besylate (Norvasc -) 2.5 mg PO DAILY [facility] Last Admin: 01/16/17 10:05 Dose: 2.5 mg Apixaban (Eliquis -) 10 mg PO BID [facility] Stop: 01/21/17 20:29 Last Admin: 01/16/17 10:14 Dose: 10 mg Calcium Carbonate (Os-Pedro 500mg -) 500 mg PO BID [facility] Last Admin: 01/16/17 10:10 Dose: 500 mg Famotidine/Sodium Chloride (Pepcid 20 Mg Premixed Ivpb -) 50 mls @ 100 mls/hr IVPB BID [facility] Last Admin: 01/16/17 10:04 Dose: 100 mls/hr Memantine (Namenda -) 10 mg PO DAILY [facility] Last Admin: 01/16/17 10:04 Dose: 10 mg Ondansetron HCl (Zofran Injection) 4 mg IVPB Q6H PRN PRN Reason: NAUSEA Paroxetine HCl (Paxil -) 10 mg PO DAILY [facility] Last Admin: 01/16/17 10:05 Dose: 10 mg Piperacillin Sod/Tazobactam Sod (Zosyn 3.375gm Ivpb (Pre-Docked)) 3.375 gm IVPB Q8H-IV MARI PRN Reason: Protocol Last Admin: 01/16/17 10:04 Dose: 3.375 gm Rivastigmine Tartrate (Exelon (Nf) -) 1.5 mg PO BID [facility] Last Admin: 01/16/17 10:15 Dose: 1.5 mg Thiamine HCl (Vitamin B1 -) 100 mg PO DAILY [facility] Last Admin: 01/16/17 10:10 Dose: 100 mg - Objective Vital Signs: Vital Signs Temperature 97.8 F 01/16/17 05:00 Pulse Rate 85 01/16/17 05:00 Respiratory Rate 20 01/16/17 05:00 Blood Pressure 133/79 01/16/17 05:00 O2 Sat by Pulse Oximetry (%) 97 01/15/17 23:25 Eyes: Yes: WNL, Conjunctiva Clear, EOM Intact HENT: Yes: WNL, Atraumatic, Normocephalic Neck: Yes: WNL, Supple, Trachea Midline Cardiovascular: Yes: WNL, Regular Rate and Rhythm Respiratory: Yes: WNL, Regular, CTA Bilaterally Gastrointestinal: Yes: WNL, Normal Bowel Sounds Genitourinary: Yes: WNL Musculoskeletal: Yes: WNL Extremities: Yes: WNL Edema: No Integumentary: Yes: WNL Neurological: Yes: WNL, Alert, Oriented ...Motor Strength: WNL Psychiatric: Yes: WNL Labs: CBC, BMP 01/16/17 06:00 01/16/17 06:00 INR, PTT INR 1.43 (0.82-1.09) H 01/14/17 05:15 Assessment/Plan (1) Lactic acid acidosis Code(s): E87.2 - ACIDOSIS (2) Pulmonary embolism Assessment/Plan: s/p TPa; AV thrombectomy. Changed IV heparin to PO apixaban. Normal LVEF; severely dilated RV, with severely reduced RVEF (f/u ECHO in 3-6 months as outpatient). Avoid dehydration. Code(s): I26.99 - OTHER PULMONARY EMBOLISM WITHOUT ACUTE COR PULMONALE (3) Sepsis Assessment/Plan: On antibiotics; f/u C/s. Dementia: on namenda and SSRI. Code(s): A41.9 - SEPSIS, UNSPECIFIED ORGANISM Qualifiers: Qualified Code(s): A41.9 - Sepsis, unspecified organism (4) Elevated LFTs Code(s): R79.89 - OTHER SPECIFIED ABNORMAL FINDINGS OF BLOOD CHEMISTRY (5) Elevated troponin Assessment/Plan: EKG: sinus tachycrdia; no acute ST-T changes. demand ischemia, with acute PE, CHF, and sepsis contributing factors to increase in TNI. f/u lipids. hypothyroid: f/u Free T3 and free T4. Code(s): R74.8 - ABNORMAL LEVELS OF OTHER SERUM ENZYMES (6) Diastolic CHF Assessment/Plan: CXR: RLL consolidation. Acute PE. F/u BNP. Code(s): I50.30 - UNSPECIFIED DIASTOLIC (CONGESTIVE) HEART FAILURE
[2017-01-17] MEDS: PIPERACILLIN/TAZOB 3.375 GM/50 ML PRE-DOCKED IVPB SCH ×3 (02:40→18:15)
[2017-01-17] MEDS: THIAMINE HCL 100 MG TABLET (FP) PO SCH (09:14)
[2017-01-17] MEDS: PARoxetine HCL 10 MG TABLET (FP) PO SCH (09:14)
[2017-01-17] MEDS: amLODIPine BESYLATE 2.5 MG TABLET (FP) PO SCH (09:14)
[2017-01-17] MEDS: FAMOTIDINE 20 MG/50 ML IVPB 50 ML IVPB SCH ×2 (09:14→21:50)
[2017-01-17] MEDS: MEMANTINE HCL 10 MG TABLET (FP) PO SCH (09:14)
[2017-01-17] MEDS: CALCIUM (OYSTER SHELL) 500 MG TABLET (FP) PO SCH ×2 (09:14→21:51)
[2017-01-17] MEDS: APIXABAN 5 MG TABLET PO SCH ×2 (11:26→21:50)
[2017-01-17] MEDS: RIVASTIGMINE TARTRATE 1.5 MG CAPSULE PO SCH ×2 (11:26→21:51)
--- NOTE | 2017-01-17 12:04 | PN ---
Progress Note, Physician History of Present Illness: The patient's family states that she woke up complaining of abdominal pain and vomited a few times. The care worker states her last BM was yesterday but she is often constipated. They also have noticed a decrease in urination. They deny fever, cough, hemoptysis, CP, SOB, hematuria, diarrhea, hematemesis, hematochezia, melena. - Current Medication List Current Medications: Active Medications Amlodipine Besylate (Norvasc -) 2.5 mg PO DAILY [facility] Last Admin: 01/17/17 09:14 Dose: 2.5 mg Apixaban (Eliquis -) 10 mg PO BID [facility] Stop: 01/21/17 20:29 Last Admin: 01/17/17 11:26 Dose: 10 mg Calcium Carbonate (Os-Pedro 500mg -) 500 mg PO BID [facility] Last Admin: 01/17/17 09:14 Dose: 500 mg Famotidine/Sodium Chloride (Pepcid 20 Mg Premixed Ivpb -) 50 mls @ 100 mls/hr IVPB BID [facility] Last Admin: 01/17/17 09:14 Dose: 100 mls/hr Memantine (Namenda -) 10 mg PO DAILY [facility] Last Admin: 01/17/17 09:14 Dose: 10 mg Ondansetron HCl (Zofran Injection) 4 mg IVPB Q6H PRN PRN Reason: NAUSEA Paroxetine HCl (Paxil -) 10 mg PO DAILY [facility] Last Admin: 01/17/17 09:14 Dose: 10 mg Piperacillin Sod/Tazobactam Sod (Zosyn 3.375gm Ivpb (Pre-Docked)) 3.375 gm IVPB Q8H-IV MARI PRN Reason: Protocol Last Admin: 01/17/17 09:14 Dose: 3.375 gm Rivastigmine Tartrate (Exelon (Nf) -) 1.5 mg PO BID [facility] Last Admin: 01/17/17 11:26 Dose: 1.5 mg Thiamine HCl (Vitamin B1 -) 100 mg PO DAILY [facility] Last Admin: 01/17/17 09:14 Dose: 100 mg - Objective Vital Signs: Vital Signs Temperature 97.9 F 01/17/17 06:00 Pulse Rate 79 01/17/17 06:00 Respiratory Rate 20 01/17/17 06:00 Blood Pressure 143/80 01/17/17 06:00 O2 Sat by Pulse Oximetry (%) 96 01/16/17 21:00 Eyes: Yes: WNL, Conjunctiva Clear, EOM Intact HENT: Yes: WNL, Atraumatic, Normocephalic Neck: Yes: WNL, Supple, Trachea Midline Cardiovascular: Yes: WNL, Regular Rate and Rhythm Respiratory: Yes: WNL, Regular, CTA Bilaterally Gastrointestinal: Yes: WNL, Normal Bowel Sounds Genitourinary: Yes: WNL Musculoskeletal: Yes: WNL Extremities: Yes: WNL Edema: No Integumentary: Yes: WNL Neurological: Yes: WNL, Alert, Oriented ...Motor Strength: WNL Psychiatric: Yes: WNL Labs: CBC, BMP 01/16/17 06:00 01/16/17 06:00 INR, PTT INR 1.43 (0.82-1.09) H 01/14/17 05:15 Assessment/Plan (1) Lactic acid acidosis Code(s): E87.2 - ACIDOSIS (2) Pulmonary embolism Assessment/Plan: s/p TPa; AV thrombectomy. Changed IV heparin to PO apixaban. Normal LVEF; severely dilated RV, with severely reduced RVEF (f/u ECHO in 3-6 months as outpatient). Avoid dehydration. Code(s): I26.99 - OTHER PULMONARY EMBOLISM WITHOUT ACUTE COR PULMONALE (3) Sepsis Assessment/Plan: On antibiotics; f/u C/s. Dementia: on namenda and SSRI. Code(s): A41.9 - SEPSIS, UNSPECIFIED ORGANISM Qualifiers: Qualified Code(s): A41.9 - Sepsis, unspecified organism (4) Elevated LFTs Code(s): R79.89 - OTHER SPECIFIED ABNORMAL FINDINGS OF BLOOD CHEMISTRY (5) Elevated troponin Assessment/Plan: EKG: sinus tachycrdia; no acute ST-T changes. demand ischemia, with acute PE, CHF, and sepsis contributing factors to increase in TNI. f/u lipids. hypothyroid: f/u Free T3 and free T4. Code(s): R74.8 - ABNORMAL LEVELS OF OTHER SERUM ENZYMES (6) Diastolic CHF Assessment/Plan: CXR: RLL consolidation. Acute PE. F/u BNP. Code(s): I50.30 - UNSPECIFIED DIASTOLIC (CONGESTIVE) HEART FAILURE
--- NOTE | 2017-01-17 15:10 | PN ---
Progress Note (short form) - Note Progress Note: resting comfortable. denies CP, SOB,fever, chills, N/V/C/D Current Medications Generic Name Dose Route Start Last Admin Trade Name Lea PRN Reason Stop Dose Admin Amlodipine Besylate 2.5 mg 01/15/17 11:45 01/17/17 09:14 Norvasc - PO 2.5 mg DAILY [facility]I Administration Apixaban 10 mg 01/14/17 20:30 01/17/17 11:26 Eliquis - PO 01/21/17 20:29 10 mg BID MARI Administration Calcium Carbonate 500 mg 01/14/17 22:00 01/17/17 09:14 Os-Pedro 500mg - PO 500 mg BID MARI Administration Famotidine/Sodium Chloride 50 mls @ 100 mls/hr 01/14/17 22:00 01/17/17 09:14 Pepcid 20 Mg Premixed Ivpb - IVPB 100 mls/hr BID [facility]I Administration Memantine 10 mg 01/15/17 10:00 01/17/17 09:14 Namenda - PO 10 mg DAILY [facility] Administration Ondansetron HCl 4 mg 01/14/17 14:55 Zofran Injection IVPB Q6H PRN NAUSEA Paroxetine HCl 10 mg 01/15/17 10:00 01/17/17 09:14 Paxil - PO 10 mg DAILY [facility]I Administration Piperacillin Sod/Tazobactam Sod 3.375 gm 01/14/17 18:00 01/17/17 09:14 Zosyn 3.375gm Ivpb (Pre-Docked) IVPB 3.375 gm Q8H-IV MARI Administration Protocol Rivastigmine Tartrate 1.5 mg 01/15/17 10:00 01/17/17 11:26 Exelon (Nf) - PO 1.5 mg BID MARI Administration Thiamine HCl 100 mg 01/15/17 10:00 01/17/17 09:14 Vitamin B1 - PO 100 mg DAILY [facility] Administration Last Vital Signs Temp Pulse Resp BP Pulse Ox 97.9 F 79 20 143/80 96 01/17/17 06:00 01/17/17 06:00 01/17/17 06:00 01/17/17 06:00 01/16/17 21:00 General NAD A&O x1 (self only) CV S1 S2 RRR no murmur/rub/gallop LUngs CTA B/L anteriorly no wheezing or crackles abdomen soft NT/ND Extremities no pedal edema ASSESSMENT AND PLAN: 81yo F wtih PMH dementia presented to the ER with lethargy with nausea and vomiting and found to be septic due to PNA and to have saddle PE 1. Saddle PE- with R heart strain and LLE DVT. s/p TPA directed catheter 01/12, s/p IVC filter placement 01/13. no bleeding. Hgb stable. on eliquis 10mg BID for PE treatment x7days then decrease to 5mg BID. repeat echo to see if R heart strain has improved in 3-6months 2. Severe Sepsis due to PNA-clinically improved. on Zosyn day 7. can likely switch to po augmentin for several weeks. awaiting quantiferon gold to r/o TB but low suspicion. 3. Troponin leak- likely demand ischemia in setting of PE and sepsis. peaked at 0.38 and trending down. cardio consulted. hemodynamically stable. will need to repeat echo in several months 4. Transaminitis- likely due to hypoperfusion. trending down. 5. Pseudohypocalcemia- Corrected Ca 8.5 6. medically optimized for discharge. awaiting insurance authorization for SHARM[facility]. spoke with daughter present at bedside. anticipate d/c tomorrow. answered all questions. verbalized understanding and agreement with plan Visit type - Emergency Visit Emergency Visit: Yes ED Registration Date: 01/11/17 Care time: The patient presented to the Emergency Department on the above date and was hospitalized for further evaluation of their emergent condition. - New Patient This patient is new to me today: No - Critical Care Critical Care patient: No - Discharge Referral Referred to [id number] No
[2017-01-18] MEDS: PIPERACILLIN/TAZOB 3.375 GM/50 ML PRE-DOCKED IVPB SCH ×2 (02:30→12:42)
[2017-01-18] MEDS ORDERED: PT OWN MED DRAWER 7, Y5N ONE (11:12)
[2017-01-18] MEDS: FAMOTIDINE 20 MG/50 ML IVPB 50 ML IVPB SCH (11:19)
[2017-01-18] MEDS: CALCIUM (OYSTER SHELL) 500 MG TABLET (FP) PO SCH (11:20)
[2017-01-18] MEDS: amLODIPine BESYLATE 2.5 MG TABLET (FP) PO SCH (11:20)
[2017-01-18] MEDS: MEMANTINE HCL 10 MG TABLET (FP) PO SCH (11:20)
[2017-01-18] MEDS: APIXABAN 5 MG TABLET PO SCH (11:24)
[2017-01-18] MEDS: RIVASTIGMINE TARTRATE 1.5 MG CAPSULE PO SCH (11:25)
--- NOTE | 2017-01-18 11:43 | PN ---
Progress Note (short form) - Note Progress Note: day #7 antibiotics awake on dysphagia puree diet Vital Signs Period Temp Pulse Resp BP Sys/Mcdaniel Pulse Ox Last 24 Hr 97.5 F-98.8 F 85-89 20-20 128-146/73-75 95 cor-rrr lungs decreased bs at bases abd soft,nt ext no edema CBC, BMP 01/16/17 06:00 01/16/17 06:00 quantiferon gold negative legionella antigen negative Microbiology 01/14/17 05:15 Blood - Peripheral Venous TB Test (QFT) (EFRAIN) - Final 01/11/17 13:10 Blood - Peripheral Venous Blood Culture - Final NO GROWTH AFTER 5 DAYS INCUBATION 01/11/17 13:10 Blood - Peripheral Venous Blood Culture - Final NO GROWTH AFTER 5 DAYS INCUBATION 01/11/17 13:36 Urine - Urine - Catheterized Urine Culture - Final NO GROWTH OBTAINED 01/12/17 14:21 Urine For Antigen Detection Legionella Antigen - Final 01/12/17 14:21 Urine For Antigen Detection Streptococcus pneumoniae Antigen (M - Final a/p PE DVT cavitary lung lesion- ?pulmonary infarct, ?anaerobic infection due to aspiration s/p 7 days zosyn, can switch to augmentin- consider suspension would treat another [address] scan of chest at that time please call back if needed
[2017-01-18] MEDS ORDERED: AMOX TR/POTASSIUM CLAVULANATE 250 MG/5 ML BOTTLE PO SCH (12:00)
--- NOTE | 2017-01-18 12:23 | PN ---
Progress Note (short form) - Note Progress Note: PULMONARY APPEARS STABLE/ VSS/AFEBRILE Gen: NAD at rest Heart: RRR Lung: decreased breath sounds at the bases Abd: soft, nontender Ext: no edema Acute Pulmonary Emboli LLE DVT s/p IVC filter LLL Lung Mass / cavitary lesion HTN GERD Hyperlipidemia Alzheimer's Dementia - s/p catheter directed tPA - continue anticoagulation - antibiotics per ID (agree with plan) - PO as tolerated - will need outpt f/u of chest imaging for the LLL mass Radha VIRK MD
[2017-01-18] MEDS: THIAMINE HCL 100 MG TABLET (FP) PO SCH (13:09)
[2017-01-18] MEDS: PARoxetine HCL 10 MG TABLET (FP) PO SCH (13:09)
--- NOTE | 2017-01-18 13:53 | PN ---
Teaching Attending Note Name of Resident: Nola Mendoza ATTENDING PHYSICIAN STATEMENT I saw and evaluated the patient. I reviewed the resident's note and discussed the case with the resident. I agree with the resident's findings and plan as documented. SUBJECTIVE:resting comfortable. denies CP, SOB,fever, chills, N/V/C/D OBJECTIVE: Last Vital Signs Temp Pulse Resp BP Pulse Ox 98.5 F 82 20 128/73 95 01/18/17 06:09 01/18/17 13:01 01/18/17 06:09 01/18/17 06:09 01/18/17 13:01 General NAD A&O x1 (self only) CV S1 S2 RRR no murmur/rub/gallop LUngs CTA B/L anteriorly no wheezing or crackles abdomen soft NT/ND Extremities no pedal edema ASSESSMENT AND PLAN: 81yo F wtih PMH dementia presented to the ER with lethargy with nausea and vomiting and found to be septic due to PNA and to have saddle PE 1. Saddle PE- with R heart strain and LLE DVT. s/p TPA directed catheter 01/12, s/p IVC filter placement 01/13. no bleeding. Hgb stable. on eliquis 10mg BID for PE treatment x7days then decrease to 5mg BID. repeat echo to see if R heart strain has improved in 3-6months 2. Severe Sepsis due to PNA-clinically improved. on Zosyn day 7. can likely switch to po augmentin for 2 weeks. awaiting quantiferon gold to r/o TB but low suspicion. will need repeat CT chest in 6-8weeks 3. Troponin leak- likely demand ischemia in setting of PE and sepsis. peaked at 0.38 and trending down. cardio consulted. hemodynamically stable. will need to repeat echo in several months 4. Transaminitis- likely due to hypoperfusion. trending down. 5. Pseudohypocalcemia- Corrected Ca 8.5 6. medically optimized for discharge. awaiting insurance authorization for SHARM[facility].
[2017-01-18 14:04] VITALS: BP 127/68; PULSE 89; TEMP 97.8
--- NOTE | 2017-01-18 14:51 | PN ---
Progress Note, Physician History of Present Illness: The patient's family states that she woke up complaining of abdominal pain and vomited a few times. The care worker states her last BM was yesterday but she is often constipated. They also have noticed a decrease in urination. They deny fever, cough, hemoptysis, CP, SOB, hematuria, diarrhea, hematemesis, hematochezia, melena. - Current Medication List Current Medications: Active Medications Amlodipine Besylate (Norvasc -) 2.5 mg PO DAILY [facility] Last Admin: 01/18/17 11:20 Dose: 2.5 mg Amoxicillin/Clavulanate Potassium (Augmentin 250 Mg/5 Ml Oral Suspension -) 500 mg PO TIDCM [facility] Apixaban (Eliquis -) 10 mg PO BID [facility] Stop: 01/21/17 20:29 Last Admin: 01/18/17 11:24 Dose: 10 mg Calcium Carbonate (Os-Pedro 500mg -) 500 mg PO BID [facility] Last Admin: 01/18/17 11:20 Dose: 500 mg Famotidine/Sodium Chloride (Pepcid 20 Mg Premixed Ivpb -) 50 mls @ 100 mls/hr IVPB BID [facility] Last Admin: 01/18/17 11:19 Dose: 100 mls/hr Memantine (Namenda -) 10 mg PO DAILY [facility] Last Admin: 01/18/17 11:20 Dose: 10 mg Ondansetron HCl (Zofran Injection) 4 mg IVPB Q6H PRN PRN Reason: NAUSEA Paroxetine HCl (Paxil -) 10 mg PO DAILY [facility] Last Admin: 01/18/17 13:09 Dose: 10 mg Rivastigmine Tartrate (Exelon (Nf) -) 1.5 mg PO BID [facility] Last Admin: 01/18/17 11:25 Dose: 1.5 mg Thiamine HCl (Vitamin B1 -) 100 mg PO DAILY [facility] Last Admin: 01/18/17 13:09 Dose: 100 mg - Objective Vital Signs: Vital Signs Temperature 97.8 F 01/18/17 14:01 Pulse Rate 89 01/18/17 14:01 Respiratory Rate 20 01/18/17 14:01 Blood Pressure 127/68 01/18/17 14:01 O2 Sat by Pulse Oximetry (%) 95 01/18/17 13:01 Eyes: Yes: WNL, Conjunctiva Clear, EOM Intact HENT: Yes: WNL, Atraumatic, Normocephalic Neck: Yes: WNL, Supple, Trachea Midline Cardiovascular: Yes: WNL, Regular Rate and Rhythm Respiratory: Yes: WNL, Regular, CTA Bilaterally Gastrointestinal: Yes: WNL, Normal Bowel Sounds Genitourinary: Yes: WNL Musculoskeletal: Yes: WNL Extremities: Yes: WNL Edema: No Integumentary: Yes: WNL Neurological: Yes: WNL, Alert, Oriented ...Motor Strength: WNL Psychiatric: Yes: WNL Labs: CBC, BMP 01/16/17 06:00 01/16/17 06:00 INR, PTT INR 1.43 (0.82-1.09) H 01/14/17 05:15 Assessment/Plan (1) Lactic acid acidosis Code(s): E87.2 - ACIDOSIS (2) Pulmonary embolism Assessment/Plan: s/p TPa; AV thrombectomy. Changed IV heparin to PO apixaban. Normal LVEF; severely dilated RV, with severely reduced RVEF (f/u ECHO in 3-6 months as outpatient). Avoid dehydration. Code(s): I26.99 - OTHER PULMONARY EMBOLISM WITHOUT ACUTE COR PULMONALE (3) Sepsis Assessment/Plan: On antibiotics; f/u C/s. Dementia: on namenda and SSRI. Code(s): A41.9 - SEPSIS, UNSPECIFIED ORGANISM Qualifiers: Qualified Code(s): A41.9 - Sepsis, unspecified organism (4) Elevated LFTs Code(s): R79.89 - OTHER SPECIFIED ABNORMAL FINDINGS OF BLOOD CHEMISTRY (5) Elevated troponin Assessment/Plan: EKG: sinus tachycrdia; no acute ST-T changes. demand ischemia, with acute PE, CHF, and sepsis contributing factors to increase in TNI. f/u lipids. hypothyroid: f/u Free T3 and free T4. Code(s): R74.8 - ABNORMAL LEVELS OF OTHER SERUM ENZYMES (6) Diastolic CHF Assessment/Plan: CXR: RLL consolidation. Acute PE. F/u BNP. Code(s): I50.30 - UNSPECIFIED DIASTOLIC (CONGESTIVE) HEART FAILURE
== END 2017-01-18 18:33 | DRG 853 ==
LOC: JER 12:20 → JERBED 17:07 → JICU 01-12 01:41 → J7W 01-15 22:31
PROVIDERS: ADMIT Internal Medicine; ATTEND Internal Medicine
PROC: 3E06317 Introduction of Other Thrombolytic into Central Artery, Percutaneous Approach (ICD-10-PCS; principal; 2017-01-12)
PROC: 02CR3ZZ Extirpation of Matter from Left Pulmonary Artery, Percutaneous Approach (ICD-10-PCS; 2017-01-12)
PROC: 02CQ3ZZ Extirpation of Matter from Right Pulmonary Artery, Percutaneous Approach (ICD-10-PCS; 2017-01-12)
PROC: 06H03DZ Insertion of Intraluminal Device into Inferior Vena Cava, Percutaneous Approach (ICD-10-PCS; 2017-01-13)
DX: A41.9 Sepsis, unspecified organism (principal); J18.9 Pneumonia, unspecified organism; I26.92 Saddle embolus of pulmonary artery without acute cor pulmonale; G93.41 Metabolic encephalopathy; E87.2 Acidosis; I82.412 Acute embolism and thrombosis of left femoral vein; I82.432 Acute embolism and thrombosis of left popliteal vein; J90 Pleural effusion, not elsewhere classified; I50.30 Unspecified diastolic (congestive) heart failure; I24.8 Other forms of acute ischemic heart disease; R74.8 Abnormal levels of other serum enzymes; R33.9 Retention of urine, unspecified; R65.20 Severe sepsis without septic shock; R74.0 Nonspecific elevation of levels of transaminase and lactic acid dehydrogenase [LDH]; G30.9 Alzheimer's disease, unspecified; F02.80 Dementia in other diseases classified elsewhere, unspecified severity, without behavioral disturbance, psychotic disturbance, mood disturbance, and anxiety; K21.9 Gastro-esophageal reflux disease without esophagitis; M85.80 Other specified disorders of bone density and structure, unspecified site; J98.4 Other disorders of lung; E83.51 Hypocalcemia; E86.0 Dehydration; I11.0 Hypertensive heart disease with heart failure
CPT/HCPCS: 36415; 37187; 37191; 37212; 61651; 71010-TC; 71275-TC; 74020-TC; 75746-TC; 76000-TC; 76937-TC; 80048; 80053; 80061; 80076; 81003; 81015; 82140; 82550; 82553; 82607; 83605; 83690; 83721; 83735; 84100; 84425; 84439; 84443; 84484; 85025; 85027; 85610; 85651; 85730; 86140; 86480; 87040; 87086; 87899; 90670; 93005; 93010; 93306-TC; 93970-TC; 97116-GP; 97162-GP; 99284-25; C1769; C1880; C1887; C1894; C9999; J1644; J2997